=== PATIENT | female | born 1950 | race Caucasian/White ===

== ENCOUNTER 2020-03-03 11:53 | Outpatient (REF) | payer MEDICARE, SELFPAY ==
[2020-03-03 15:10] LABS: Albumin Level 4.5 g/dL (3.5-5.0); Anion Gap 15 (12-20); Blood Urea Nitrogen 14 mg/dL (9-16); Calcium 9.2 mg/dL (8.4-10.2); Carbon Dioxide 24 mmol/L (22-29); Chloride 103 mmol/L (96-108); Estimated Glomerular Filt Rate > 60; Magnesium 2.1 mg/dL (1.6-2.6); Phosphorus 3.8 mg/dL (2.7-4.5); Potassium 4.3 mmol/l (3.3-5.1); Sodium 138 mmol/L (135-145)
[2020-03-04 17:26] LABS: Calcium (PTHI) 9.7 mg/dL (8.6-10.4); PTHI 38 pg/mL (14-64)
== END 2020-03-03 11:54 | disposition home or self-care (01) ==
LOC: HO.10HDL 11:53
PROVIDERS: Visit Provider Internal Medicine Hypertension Specialist
DX: E83.52 Hypercalcemia (principal); E21.3 Hyperparathyroidism, unspecified; I10 Essential (primary) hypertension
CPT/HCPCS: 80051; 82040; 82310; 82565; 83735; 83970; 84100; 84520

== ENCOUNTER 2024-06-12 20:00 | Emergency (ER) | payer MEDICARE, SELFPAY ==
--- NOTE | ~2024-06-12 | XR_ITS ---
CLINICAL HISTORY: fall 3 view left ankle Comparison: None Findings: Acute comminuted Lisfranc joint fractures in the [id number]-[id number]. Acute and predominately oblique fracture through the distal fibula with medial intra-articular component and mild lateral displacement. 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 Ventral deformity of the distal tibia appears old with sclerosis. Soft tissue swelling and effusion present. No radiopaque retained foreign body. IMPRESSION: 1. Acute distal fibula fracture. 2. Please refer to foot x-rays for acute Lisfranc fractures. This document has been electronically signed by: Jesse Salazar MD on 06/12/2024 20:50:01
--- NOTE | ~2024-06-12 | XR_ITS ---
CLINICAL HISTORY: fall 3 view left foot Comparison: None Findings: Acute comminuted fractures in the bases of the 1st, 2nd, 3rd, and 4th metatarsals with predominantly lateral displacement of proximal and lateral fragments. No complete dislocation. Severe soft tissue swelling is present, including distally and dorsally. Low bone mineralization suggested. No radiopaque retained foreign body. IMPRESSION: Acute Lisfranc fracture. This document has been electronically signed by: Jesse Salazar MD on 06/12/2024 20:45:41
[2024-06-12 20:09] VITALS: BP 120/50; BP 148/88; PULSE 78; PULSE 80; RESP 16; TEMP 36.6; O2SAT 97; O2SAT 98; BMI 23.2
[2024-06-12 20:13] VITALS: BP 120/50; PULSE 78; RESP 16; TEMP 36.6; O2SAT 97
--- OUTSIDE RECORDS SUMMARY | 2024-06-12 20:43 | XMS_ITS | Encounter Summary ---
Author Organization [facility] Address [address] [facility] [address] [place] [address] Phone Care Team Providers Care Directional Driller Name Role Phone Unavailable Primary Care Provider Unavailabl e Encounter Details Date Type Department Care Team (Late Contact Info) Description 02/20/2021 Orders Only [facility] [address] [facility] [address] [place] [address] Angélica Ferrer MA Hypo-osmolality and hyponatremia (Primary Dx) Social History Tobacco Use Types Packs/Day Years Used Date Smoking Tobacco: Former Alcohol Use Standard Drinks/Week Comments Yes 0 (1 standard drink = 0.6 oz pure alcohol) Alcoholic Drinks/day: Occasional social drink Comments Unknown Sex and Gender Information Value Date Recorded Sex Assigned at Not on file Legal Sex Female 5:02 PM EST Gender Identity Not on file Sexual Orientation Not on file documented as of this encounter Plan of Treatment Upcoming Encounters Date Type Department Care Team (Late st Contact Info) Description 05/03/2025 1:30 PM EST Office [facility] [address] [place] [phone] Zain Conroy MD [address] [facility] [address] [place] [phone] Scheduled Orders Name Type Priority Associated Diagnoses Orde r Schedule Basic metabolic panel Lab Routine Hypo-osmolality and hyponatremia Expected: 02/20/2021, Expires: 03/23/2022 documented as of this encounter Visit Diagnoses Diagnosis Hypo-osmolality and hyponatremia- Primary documented in this encounter
--- OUTSIDE RECORDS SUMMARY | 2024-06-12 20:43 | XMS_ITS | Clinical Summary ---
Author Organization [employer] Address [address] [facility] 7t [place] [address] Care Team Providers Care Large Animal Veterinarian Name Role Phone Unavailable Primary Care Provider Unavailabl e Allergies Active Allergy Reactions Criticality Noted Date Comments Penicillins Diarrhea 04/17/2023 Medications atenolol (Tenormin) 25 MG tablet Take by mouth in the morning. Active Social History Tobacco Use Types Packs/Day Years Used Date Smoking Tobacco: Never Assessed Comments Unknown Sex and Gender Information Value Date Recorded Sex Assigned at Female 03/05/2022 10:17 AM EDT Legal Sex Female 10:17 AM EDT Gender Identity Female 03/05/2022 10:17 AM EDT Sexual Orientation Choose not to disclose 2021 10:17 AM EDT Last Filed Vital Signs Vital Sign Reading Time Taken Comments Blood Pressure 145/65 04/17/2023 2:22 PM EST Pulse - - Temperature - - Respiratory Rate - - Oxygen Saturation - - Inhaled Oxygen Concentration - - Weight - - Height - - Body Mass Index - - Plan of Treatment Health Maintenance Due Date Last Done Comments Depression Screening 1950 Lipid Panel 1950 SDOH Screening 1950 Alcohol/Substance Use Screening 1960 Tobacco Screening 1960 Hepatitis C Screening 02/23/1966 DTaP/Tdap/Td Vaccines (1 - Tdap) 02/23/1967 Pneumococcal Vaccine: 50+ Years (1 of 1 - PCV) 02/23/1998 Zoster Vaccines (1 of 2) 02/23/1998 Dental Oral Exam 03/15/2017 09/11/2016, 07/13/2013 Dental Prophylaxis 04/20/2017 10/18/2016, 0 09/29/2013, 02/15/2012, Additional history exists Dental X-Ray: Bitewings 09/12/2017 09/12/19 17, 07/20/2016, 12/10/2014, Additional history exists RSV Patients and Patients Aged 60 years or older (1 - 1-dose 75+ series) 02/23/2023 Dental X-Ray: Full Mouth 04/07/2023 020, 09/11/2016, 12/22/2013 COVID-19 Vaccine ( season) 2024 03/21/2022, 08/18/2020, 07/27/2020 Influenza Vaccine (#1) 2024 HIB Vaccines Aged Out No longer eligi ble based on patient's age to complete this topic HPV Vaccines Aged Out No longer eligi ble based on patient's age to complete this topic Hepatitis A Vaccines Aged Out No long er eligible based on patient's age to complete this topic Hepatitis B Vaccines Aged Out No long er eligible based on patient's age to complete this topic IPV Vaccines Aged Out No longer eligi ble based on patient's age to complete this topic Meningococcal Vaccine Aged Out No ana leo eligible based on patient's age to complete this topic RSV under 20 months Aged Out No longe r eligible based on patient's age to complete this topic Rotavirus Vaccines Aged Out No longer eligible based on patient's age to complete this topic Procedures Procedure Name Priority Date/Time Associated Diagnosis Comments PANORAMIC RADIOGRAPHIC IMAGE Routine 04/06/2020 12:00 AM EST PROPHYLAXIS - ADULT Routine 10/18/2016 1 2:00 AM EDT DIAGNOSTIC - DIAGNOSTIC IMAGING - INTRAORAL - COMPREHENSIVE SERIES OF RADIOGRAPHIC IMAGES Routine 09/11/2016 12:00 AM EDT COMPREHENSIVE ORAL EVALUATION - NEW OR ESTABLISHED PATIENT Routine 09/11/2016 12:00 AM EDT from Last 3 Months or Most Recently Relevant to Health Maintenance Insurance DENTAL - HSN FULL (MEDICAID)
--- OUTSIDE RECORDS SUMMARY | 2024-06-12 20:43 | XMS_ITS | Clinical Summary ---
Author Organization [facility] Address [address] [phone] Phone Care Team Providers Care Ways Operator Name Role Phone Unavailable Primary Care Provider Unavailabl e Allergies No known active allergies Medications loperamide (IMODIUM A-D) 2 MG tablet Take 1 tablet by mouth in the morning. 02/07/20 18 Active atenolol (TENORMIN) 25 MG tabletIndications:Essen tial hypertension,Primary hyperparathyroidism (HCC),Hypercalcemia Take 1 tablet (25 mg total) by mouth 1 (one) time each day 90 tablet 3 08/28/19 24 025 Active amLODIPine (NORVASC) 2.5 MG tabletIndications:Essen tial hypertension,Hypercalce vicky,Primary hyperparathyroidism (HCC) TAKE 1 TABLET(2.5 MG) BY MOUTH 1 TIME EACH DAY 30 tablet 2 04/30/20 24 Active amLODIPine (Norvasc) 2.5 MG tablet Take 1 tablet (2.5 mg total) by mouth 1 (one) time each day 90 tablet 3 04/30/20 24 025 Active Active Problems Problem Noted Date Diagnosed Date Essential hypertension 02/20/2021 Hypercalcemia 02/20/2021 Hyperparathyroidism 02/20/2021 Hypertensive renal disease 02/20/2021 Encounters Date Type Department Care Team Description 04/30/2024 1:00 PM EST [facility] [address] [place] [phone] Zain Conroy MD Essential hypertension (Primary Dx) 04/30/2024 Refill [facility] [address] [place] [phone] Zain Conroy MD Essential hypertension; Hypercalcemia; Primary hyperparathyroidism (HCC) from Last 3 Months Family History Medical History Relation Comments Dementia Mother Hypertension Mother Relation Status Comments Father Unknown Mother Unknown Social History Tobacco Use Types Packs/Day Years Used Date Smoking Tobacco: Former Smokeless Tobacco: Never Tobacco Cessation:Counseling Given: Not Answered Alcohol Use Standard Drinks/Week Comments Yes 0 (1 standard drink = 0.6 oz pure alcohol) Alcoholic Drinks/day: Occasional social drink Comments Unknown Sex and Gender Information Value Date Recorded Sex Assigned at Not on file Legal Sex Female 5:02 PM EST Gender Identity Not on file Sexual Orientation Not on file Last Filed Vital Signs Vital Sign Reading Time Taken Comments Blood Pressure 130/78 04/30/2024 12:59 PM EST Pulse 86 03/05/2023 1:27 PM EDT Temperature - - Respiratory Rate - - Oxygen Saturation 96% 03/05/2023 1:27 PM EDT Inhaled Oxygen Concentration - - Weight 59.8 kg (131 lb 12.8 oz) 024 12:59 PM EST Height 165.1 cm (5' 5 ) 03/01/2022 10:2 2 AM EDT Body Mass Index 21.93 03/01/2022 10:22 AM EDT Plan of Treatment Upcoming Encounters Date Type Department Care Team (Late st Contact Info) Description 05/03/2025 1:30 PM EST Office [facility] [address] [place] [address] Zain Conroy MD [address] [facility] [address] [place] [address] Health Maintenance Due Date Last Done Comments Pneumococcal Vaccine: 65+ Ye ars (1 of 2 - PCV) 02/23/1956 Influenza Vaccine (#1) 2024 Hepatitis B Vaccine Aged Out No longe r eligible based on patient's age to complete this topic Insurance [facility] [employer] [id number]
[2024-06-12] MEDS: Acetaminophen 325 MG TABLET 975 MG PO (21:03)
[2024-06-12 22:09] VITALS: BP 117/47; PULSE 77; RESP 20; TEMP 36.5; O2SAT 94
[2024-06-13] VITALS (7 sets, daily range): BP systolic 135–159; BP diastolic 59–72; PULSE 78–96; RESP 16–20; TEMP 36.5–37; O2SAT 94–98
--- NOTE | 2024-06-13 03:15 | ED_ITS ---
HPI - Extremity Injury (Lower) General Chief Complaint: Extremity Injury, Lower Stated Complaint: A&O Lft foot pain after fall deformity on foot Time Seen by Provider: 06/13/24 03:15 Source: patient Mode of arrival: EMS Limitations: no limitations History of Present Illness ED Provider: HPI Narrative: Patient apparently wearing the high heels coming out of the car slipped on the b lack eyes comes here with swelling and bruising of the left foot unable to bear weight because of pain no other injuries no head injury no loss of consciousness Related Data Previous Rx's ?Medication ?Instructions ?Recorded oxycodone 5 mg tablet 5 mg PO Q6H PRN pain #20 tabs 06/13/24 walker (Ultra-Light Rollator misc) #1 ea 06/13/24 Allergies Allergy/AdvReac Type Severity Reaction Status Date / Time No Known Allergies Allergy Verified 06/12/24 20:12 Review of Systems Review of Systems: Yes all other systems are reviewed and are negative [facility] Social History Social History Alcohol intake: current Alcohol intake frequency: a few times a month Alcohol type: wine Smoked in Last 30 Days: No Use of substances other than those prescribed or required for medical reasons: No Advance Directives: No Advance Directives Information Provided: No Physical Exam Vital Signs: Vital Signs: Last Vital Signs Temp 97.7 F 06/13/24 06:21 Pulse 87 06/13/24 06:21 Resp 16 06/13/24 06:21 BP 155/71 H 06/13/24 06:21 Pulse Ox 95 06/13/24 06:21 O2 Del Method Room Air 06/13/24 06:21 BMI result Body Mass Index 23.2 Appearance: Alert. Oriented X3. No acute distress. ENT: Pharynx normal. Oral Mucosa moist Neck: Normal inspection. Neck supple. CVS: Normal heart rate and rhythm. Pulses normal. Respiratory: No respiratory distress. Equal air entry bilateral, no wheezing/rales/rhonchi Skin: Skin warm and dry. Normal skin color. Normal skin turgor. Extremities: No lower extremity edema. Left foot with ecchymosis in the dorsum with diffuse tenderness tenderness at the lateral malleolus Neuro: Oriented X 3. Medications Administered Discontinued Medications Generic Name Dose Route Start Last Admin Trade Name Freq PRN Reason Stop Dose Admin Acetaminophen 975 mg 06/12/24 20:57 06/12/24 21:03 Acetaminophen 325 Mg Tablet PO 06/12/24 20:58 975 mg ONCE ONE Administration Oxycodone HCl 10 mg 06/13/24 03:24 06/13/24 03:30 Oxycodone Hcl Immed Release 5 Mg Tablet PO 06/13/24 03:25 10 mg ONCE ONE Administration Oxycodone HCl 10 mg 06/13/24 06:13 06/13/24 06:22 Oxycodone Hcl Immed Release 5 Mg Tablet PO 06/13/24 06:14 10 mg ONCE ONE Administration Medical Decision Making Medical Decision Making MDM Narrative: Patient with left foot 2nd 3rd 4th and 5th metatarsal fracture with non displaced left lower and fibular fracture from mechanical fall ortho boot was applied patient was able to ambulate with walker does not want to stay in the hospital will be able to manage at home advised to follow with Orthopedics Independent Interpretation I performed an independent interpretation of an: Plain X-Ray Radiology Impression Discussion of test interpretation with radiology: I have reviewed the radiologist's reading. Radiologist Impression: [address] [address] XRay Report Signed Patient: Sophia Vicente MR#: [id number] : 1950 Acct:[id number] Age/Sex: 74 / F ADM Date: 06/12/24 Loc: .ED Attending Dr: Ordering Physician: Generic ED Physician Date of Service: 06/12/24 Procedure(s): XR ankle LT 2V Accession Number(s): [id number] cc: Generic ED Physician; Physician,Unknown ~ CLINICAL HISTORY: fall 3 view left ankle Comparison: None Findings: Acute comminuted Lisfranc joint fractures in the tqgbv-qm-oyez. Acute and predominately oblique fracture through the distal fibula with medial intra-articular component and mild lateral displacement. 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 Ventral deformity of the distal tibia appears old with sclerosis. Soft tissue swelling and effusion present. No radiopaque retained foreign body. IMPRESSION: 1. Acute distal fibula fracture. 2. Please refer to foot x-rays for acute Lisfranc fractures. This document has been electronically signed by: Jesse Salazar MD on 06/12/2024 20:50:[address] [address] XRay Report Signed Patient: Sophia Vicente MR#: [id number] : 1950 Acct:[id number] Age/Sex: 74 / F ADM Date: 06/12/24 Loc: HO.ED Attending Dr: Ordering Physician: Generic ED Physician Date of Service: 06/12/24 Procedure(s): XR foot LT 2V Accession Number(s): [id number] cc: Generic ED Physician; Physician,Unknown ~ CLINICAL HISTORY: fall 3 view left foot Comparison: None Findings: Acute comminuted fractures in the bases of the 1st, 2nd, 3rd, and 4th metatarsals with predominantly lateral displacement of proximal and lateral fragments. No complete dislocation. Severe soft tissue swelling is present, including distally and dorsally. Low bone mineralization suggested. No radiopaque retained foreign body. IMPRESSION: Acute Lisfranc fracture. This document has been electronically signed by: Jesse Salazar MD on 06/12/2024 20:45:41 Dictated By: Jesse Salazar MD Signed By: <Electronically signed by Jesse Salazar MD in OV> 06/12/242045 DD/ 44 TD/TT: 06/12/242044 Campus Executive Director: Procedures Orthopedic Splinting/Casting Injury #1: Side: left Lower Extremity Injury Location: ankle and foot Lower Extremity Immobilizer: post-op shoe Discharge Plan Discharge Clinical Impression: Closed left fibular fracture, Metatarsal stress fracture of left foot Patient Disposition: Home, Self-Care Instructions: Leg Fracture (ED), Foot Fracture in Adults (ED) Additional Instructions: Wear the ortho boot as given to you and use walker for ambulation Follow with Orthopedics Keep your left leg elevated Pain medication as prescribed Partial weight-bearing as tolerated Prescriptions: New oxycodone 5 mg tablet 5 mg PO Q6H PRN (Reason: pain) Qty: 20 0RF Rx Instructions: Partial Fill upon patient request. (DME) Ultra-Light Rollator Misc See Rx Instructions .Route Qty: 1 0RF Rx Instructions: As directed Referrals: Nestor Watts MD [Physician] - 1 week Print Language: Estonian
[2024-06-13] MEDS: oxyCODONE HCl Immed Release 5 MG TABLET 10 MG PO ×2 (03:30→06:22)
--- NOTE | 2024-06-13 04:09 | PC.NURSE ---
Placed boot on left foot, patient tolerated will stated foot felt better with boot, reporting some dizziness stated she hasn't eaten since noon yesterday and [place]. Pt reported she lives at home alone and daughter is unable to come until 9am.
== END 2024-06-13 10:48 | disposition home or self-care (01) ==
PROVIDERS: Emergency Provider Internal Medicine
DX: S82.402A Unspecified fracture of shaft of left fibula, initial encounter for closed fracture (principal); S92.352A Displaced fracture of fifth metatarsal bone, left foot, initial encounter for closed fracture; S92.332A Displaced fracture of third metatarsal bone, left foot, initial encounter for closed fracture; S92.342A Displaced fracture of fourth metatarsal bone, left foot, initial encounter for closed fracture; W00.0XXA Fall on same level due to ice and snow, initial encounter; Y93.9 Activity, unspecified; Y92.9 Unspecified place or not applicable; Y99.8 Other external cause status
CPT/HCPCS: 29515; 73600; 73620; 99284; 99285

== ENCOUNTER → 2024-06-12 20:20 | Outpatient (BNV) | payer MEDICARE, OTHER, SELFPAY | PROVIDERS: Visit Provider Radiology Neuroradiology | DX: S82.451A Displaced comminuted fracture of shaft of right fibula, initial encounter for closed fracture (principal); S92.311A Displaced fracture of first metatarsal bone, right foot, initial encounter for closed fracture; S92.326A Nondisplaced fracture of second metatarsal bone, unspecified foot, initial encounter for closed fracture; S92.33 Fracture of third metatarsal bone; S92.34 Fracture of fourth metatarsal bone | CPT/HCPCS: 73600; 73620 ==

== ENCOUNTER 2024-12-24 19:08 | Emergency (ER) | payer MEDICARE, SELFPAY ==
--- OUTSIDE RECORDS SUMMARY | 2024-09-03 09:15 | XMS_ITS ---
Author Organization [facility] [place] Address [address] [place] [address] Care Team Providers Care Scale Installer Name Role Phone Dat Camargo Unavailable [phone] REASON FOR VISIT New Patient Exam Encounters Encounter Location Date Provider Diagnosis Formerly [facility], [address] [place] [phone] 09/03/2024 Dat Camargo Plan Of Treatment No Information Progress Notes * TIM SÁNCHEZOB:1949 (74 yo F)Acc No.[id number]:09/03/2024 Progress Notes Patient: SIMON DÍAZ Provider: Delia KEBEDE :1950 A ge:74 Y S ex:Female Date:09/03/2024 Address:[address] [id number] Subjective: * Chief Complaints: * N ew Patient Exam * Ocular Surgical History: Objective: Vision Examination: * Electronic signature of Rush Camargo PA-C on 12/24/2024 at 07:43 PM EDT Sign off status: Pending * Provider: Delia KEBEDE Date: 09/03/2024 Generated for Kenney sanchez/Rogers/Armandoitting on: 12/24/2024 07:43 PM EDT
[2024-12-24] VITALS (8 sets, daily range): BP systolic 0–194; BP diastolic 0–113; PULSE 0–75; RESP 16–20; TEMP -17.7–36.8; O2SAT 0–98; BMI 24.0
--- NOTE | ~2024-12-24 | XR_ITS ---
CLINICAL HISTORY: pain and swelling distally 5 view right wrist Comparison: None provided Findings: Impacted comminuted intra-articular fracture of the distal radius. Posterior displacement of the distal fragment. Displaced fracture of the ulnar styloid process. First carpometacarpal joint osteoarthritis. No radiopaque foreign body. IMPRESSION: 1. Impacted comminuted intra-articular distal radius fracture with posterior displacement 2. Displaced ulnar styloid process fracture This document has been electronically signed by: Tello Osuna MD on 12/24/2024 20:41:08
--- NOTE | ~2024-12-24 | XR_ITS ---
CLINICAL HISTORY: fall onto outstretched hand, wrist pain swelling 3 view right hand Comparison: None provided Findings: There is a comminuted impacted distal radial fracture. No dislocations. No significant arthritic change. No erosions. No radiopaque foreign body. IMPRESSION: 1. Comminuted impacted distal radial fracture This document has been electronically signed by: Shaggy Burrell MD on 12/24/2024 20:57:28
--- NOTE | ~2024-12-24 | XR_ITS ---
CLINICAL HISTORY: s p reduction 2 view right wrist Comparison: None provided Findings: There is a comminuted intra-articular distal radial fracture with dorsal angulation of the distal fragments. There is distracted ulnar styloid process fracture. No dislocations. No significant arthritic change or erosions. No radiopaque foreign body. IMPRESSION: 1. Comminuted intra-articular angulated distal radial fracture. 2. Ulnar styloid process fracture This document has been electronically signed by: Shaggy Burrell MD on 12/24/2024 22:12:02
--- NOTE | 2024-12-24 19:12 | ED.GENADULT ---
HPI - General Adult General Chief complaint: Extremity Injury, Upper Stated complaint: fell 12/24 right wrist pain/swelling Time Seen by Provider: 12/24/24 20:15 Source: patient Limitations: other (Intoxication) History of Present Illness ED Provider: Micaela Pascual PA-C HPI narrative: 74-year-old female with a history of hypertension presents after fall. Patient states she tripped while walking up a step, she fell forward landing on outstretched hand, now with right wrist pain. Associated swelling and deformity. Denies paresthesia or hand pain. The patient does not use a blood thinner. There was no head strike no loss of consciousness. Related Data Previous Rx's ?Medication ?Instructions ?Recorded oxycodone 5 mg tablet 5 mg PO Q6H PRN pain #20 tabs 06/13/24 walker (Ultra-Light Rollator misc) #1 ea 06/13/24 Allergies Allergy/AdvReac Type Severity Reaction Status Date / Time No Known Allergies Allergy Verified 12/24/24 19:16 Review of Systems Review of Systems: Yes all other systems are reviewed and are negative Constitutional: Constitutional: Denies fatigue and Denies fever(s) Cardiovascular: Cardiovascular: Denies chest pain and Denies dyspnea Respiratory: Respiratory: Denies dyspnea Musculoskeletal: Musculoskeletal: Reports arthralgias, Reports joint swelling, Denies muscle weakness, Denies numbness and Denies tingling Neurologic: Denies numbness and Denies tingling Endocrine: Endocrine: Denies fatigue [facility] Past Medical History Attestation statement: The following information was validated with the patient. Social History Social History (System 07/01/24 @ 10:37 by Josiane Crews) Alcohol intake: current Alcohol intake frequency: 0-2 drinks per day Alcohol type: wine and hard liquor Smoked in Last 30 Days: No Use of substances other than those prescribed or required for medical reasons: No Advance Directives: No Advance Directives Information Provided: No Physical Exam ED Vital Signs: Vital Signs - 24 hr 12/24/24 19:13 12/24/24 19:37 12/24/24 22:05 Temperature 97.5 F 97.5 F Pulse Rate 75 75 66 Respiratory Rate 20 20 16 Blood Pressure 194/85 H 194/85 H 151/72 H Pulse Oximetry 98 98 98 Oxygen Delivery Method Room Air Room Air BMI result Body Mass Index 24.0 Const Other: Alert well-appearing, no evidence of head trauma on exam Orientation/consciousness: patient oriented x3 HENMT Other: Alcohol halitosis Resp Effort & Inspection: normal respiratory effort Cardio Other: Normal peripheral perfusion Skin Other: Warm dry no rash Neuro General: patient oriented x3, gait normal, no focal motor deficits and CN's II-XI intact bilaterally Extrem Other: The right wrist is deformed, swollen, ecchymotic, the patient is continually shaking her hand back and forth, flexing and extending the wrist Psych Other: Cooperative, intoxicated Course Course Course Narrative: This is a rapid medical exam performed by Sunny Pa NP: Additional HPI, ROS, PE not included below will be deferred to primary provider. Patient is a 74y/o R hand dominant female presenting with complaint of right wrist pain and swelling after a fall a few hours ago. States that she missed a step and fell onto her outstretched hand. Denies head strike or LOC. Not anticoagulated. Admits to drinking 2 glasses of wine today. Plan: xrays Consultations Consultation #1: per ortho....Richard Dhillon PA-C Time: 20:52 Medications Administered Discontinued Medications Generic Name Dose Route Start Last Admin Trade Name Jose PRN Reason Stop Dose Admin Acetaminophen 975 mg 12/24/24 20:47 12/24/24 21:20 Acetaminophen 325 Mg Tablet PO 12/24/24 20:48 Not Given ONCE ONE Acetaminophen 1,000 mg in 100 mls @ 400 mls/hr 12/24/24 22:09 12/24/24 22:43 Ofirmev IV 12/24/24 22:23 400 mls/hr ONCE ONE Administration Ibuprofen 600 mg 12/24/24 20:47 12/24/24 21:20 Ibuprofen 600 Mg Tablet PO 12/24/24 20:48 Not Given ONCE ONE Propofol 31.7515 mg 12/24/24 21:06 12/24/24 22:05 Propofol 200 Mg/20 Ml Vial 0.5 mg/kg (31.7515 mg) 12/24/24 21:07 31.7515 mg IVPUSH Administration ONCE ONE Propofol 63.503 mg 12/24/24 21:51 12/24/24 22:05 Propofol 200 Mg/20 Ml Vial 1 mg/kg (63.503 mg) 12/24/24 21:52 63.503 mg IVPUSH Administration ONCE ONE Procedures Orthopedic Fracture Reduction Fracture #1: Time Out Performed: Yes Side: right Fracture Reduction Location: radius Analgesia: procedural sedation Technique: direct manipulation and traction/counter-traction Post Reduction X-rays Demonstrate: acceptable reduction Post-reduction neuro exam: intact and no change Post-reduction vascular exam: intact and no change Splint Applied: Yes Patient Tolerated Procedure: well and no complications Procedural Sedation Indication: fracture/dislocation reduction ASA Class: II Mallampati Class: I Time of Last PO Intake: 11:30 Preparation: fundraising director applied, pulse oximeter, capnometry used, supplemental O2 applied, reversal agents at bedside, suction/airway equipment at bedside and IV secured IV Propofol dose (mg): 95 Patient Tolerated Procedure: well and no complications Medical Decision Making Medical Decision Making MDM Narrative: 74-year-old female with a history of hypertension presents after fall. Patient states she tripped while walking up a step, she fell forward landing on outstretched hand, now with right wrist pain. Associated swelling and deformity. Denies paresthesia or hand pain. The patient does not use a blood thinner. There was no head strike no loss of consciousness. Problem: Intoxication, age History: Per patient I have considered the following differential diagnoses: Fracture, dislocation, sprain, contusion Plan: X-rays of the hand and wrist ordered from triage, the patient has a distal radial fracture with the ulnar styloid process fracture. We will be reaching out to ortho. We are preparing for procedural sedation, for splinting purposes, we will use propofol and maybe ketamine. We will obtain screening labs in the event the patient requires admission today. Giving IV Tylenol for her pain given concurrent intoxication. Ordering a sling as well. I have independently reviewed the following tests: Labs: Slight leukocytosis, not anemic, no electrolyte abnormality, serum ethanol 200 X-ray right hand: indings: There is a comminuted impacted distal radial fracture. No dislocations. No significant arthritic change. No erosions. No radiopaque foreign body. IMPRESSION: 1. Comminuted impacted distal radial fracture X-ray right wrist:Findings: Impacted comminuted intra-articular fracture of the distal radius. Posterior displacement of the distal fragment. Displaced fracture of the ulnar styloid process. First carpometacarpal joint osteoarthritis. No radiopaque foreign body. IMPRESSION: 1. Impacted comminuted intra-articular distal radius fracture with posterior displacement 2. Displaced ulnar styloid process fracture Postreduction film: Findings: There is a comminuted intra-articular distal radial fracture with dorsal angulation of the distal fragments. There is distracted ulnar styloid process fracture. No dislocations. No significant arthritic change or erosions. No radiopaque foreign body. IMPRESSION: 1. Comminuted intra-articular angulated distal radial fracture. 2. Ulnar styloid process fracture Lab Data 12/24/24 20:31 12/24/24 20:31 Labs: Lab Results 12/24/24 12/24/24 Range/Units 20:30 20:31 WBC 13.3 H (4.8-10.8) X10*3/uL RBC 4.52 (4.20-5.50) X10*6/uL Hgb 14.0 (12.0-16.0) g/dl Hct 41.1 (37.0-47.0) % MCV 90.9 (80.0-98.0) fL MCH 31.0 (27.0-33.0) pg MCHC 34.1 (31.0-35.0) g/dl RDW 13.5 (11.0-16.0) % Plt Count 276 (160-400) X10*3/uL MPV 10.0 (9.4-12.3) fL Immature Gran % (Auto) 0.5 H (0.0-0.4) % Neut % (Auto) 89.0 H (45-73) % Lymph % (Auto) 7.4 L (20-40) % Fajardo % (Auto) 2.6 (2-11) % Eos % (Auto) 0.2 (0-4) % Baso % (Auto) 0.3 (0-2) % Lymph # (Auto) 1.0 L (1.2-4.9) X10*3/uL Fajardo # (Auto) 0.4 (0.1-1.2) X10*3/uL Eos # (Auto) 0.0 (0.0-0.4) X10*3/uL Baso # (Auto) 0.0 (0.0-0.2) X10*3/uL Abs Immat Gran (auto) 0.07 H (0.00-0.03) X10*3/uL Absolute Neuts (auto) 11.8 H (2.0-8.3) x10*3/uL Absolute Nucleated RBC 0.000 (0.0-0.012) X10*3/uL Nucleated RBC % (auto) 0.0 (0.0-0.2) /100WBC Sodium 135 (135-145) mmol/L Potassium 3.7 (3.3-5.1) mmol/L Chloride 101 (96-108) mmol/L Carbon Dioxide 20 L (22-29) mmol/L Anion Gap 18 (12-20) BUN 16 (9-16) mg/dL Creatinine 0.66 (0.5-1.4) mg/dL Estim Creat Clear Calc 62.6 Estimated GFR > 60 Random Glucose 118 H (60-115) mg/dL Calcium 9.0 (8.4-10.2) mg/dL Magnesium 2.1 (1.6-2.6) mg/dL Total Bilirubin 0.8 (0.0-1.0) mg/dL AST 30 (5-31) U/L ALT 17 (0-31) U/L Alkaline Phosphatase 81 (39-117) U/L Total Protein 7.9 (6.5-8.0) g/dL Albumin 4.8 (3.5-5.0) g/dL Urine Opiates Screen Not Detected (Not Detect) Ur Buprenorphine Scrn Not Detected (Not Detect) ng/mL Ur Oxycodone Screen Not Detected (Not Detect) ng/mL Urine Methadone Screen Not Detected (Not Detect) ng/mL Urine Fentanyl Screen Not Detected (Not Detect) Ur Barbiturates Screen Not Detected (Not Detect) Ur Phencyclidine Scrn Not Detected (Not Detect) Ur Amphetamines Screen Not Detected (Not Detect) U Benzodiazepines Scrn Not Detected (Not Detect) Urine Cocaine Screen Not Detected (Not Detect) U Marijuana (THC) Screen Not Detected (Not Detect) Ethyl Alcohol 200 mg/dL Discharge Plan Discharge Clinical Impression: Distal radius fracture, right, Nondisplaced fracture of right ulna styloid process, initial encounter for closed fracture Patient Disposition: Home, Self-Care Additional Instructions: You sustained a wrist fracture. See home care instructions. You need to keep the splint in place until you follow up with the orthopedic service. I am providing you with their contact, call tomorrow to make an appointment. You can use [id number] Tylenol 1000 mg taken every 8 hours for your pain. Prescriptions: No Action oxycodone 5 mg tablet 5 mg PO Q6H PRN (Reason: pain) Qty: 20 0RF Rx Instructions: Partial Fill upon patient request. (DME) Ultra-Light Rollator Misc See Rx Instructions .Route Qty: 1 0RF Rx Instructions: As directed Referrals: Nestor Watts MD [Physician, Orthopedics] Referral Note: Right distal radial fracture and ulnar styloid process fracture Print Language: Kiswahili
--- OUTSIDE RECORDS SUMMARY | 2024-12-24 19:44 | XMS_ITS | Encounter Summary ---
Author Organization [facility] Address [address] [facility] [place] [address] Phone Care Team Providers Care Chemical Equipment Repairer Name Role Phone Unavailable Primary Care Provider Unavailabl e Encounter Details Date Type Department Care Team (Late Contact Info) Description 02/20/2021 Orders Only [facility] [address] [place] [address] Angélica Ferrer MA Hypo-osmolality and [...] Visit [facility] [address] [place] [phone] Zain Conroy MD [address] [facility] [address] [place] [phone] Scheduled Orders Name Type Priority Associated Diagnoses Orde r Schedule Basic metabolic panel Lab Routine Hypo-osmolality and hyponatremia Expected: 02/20/2021, Expires: 03/23/2022 documented as of this encounter Visit Diagnoses Diagnosis Hypo-osmolality and hyponatremia- Primary documented in this encounter
--- OUTSIDE RECORDS SUMMARY | 2024-12-24 19:44 | XMS_ITS | Patient Health Record ---
Author Organization [facility] Address [address] [place] [address] Care Team Providers Care Vat Washer Name Role Phone Radha Escobar Unavailable [phone] Reason For Referral No Information Encounters Encounter Location Date Provider Diagnosis [facility] [address] [place] [address] 08/07/2024 Radha Escobar [address] [address] 10/16/2024 Radha Escobar Plan Of Treatment No Information Insurance Providers Payer Name Payer Address Payer Phone Subscriber Number Group Number Insured Name Patient Relationship to Insured Coverage Start Date Coverage End Date Medicare National Govt Svcs Inc [address] [facility] [address] [phone] Magaly Vicente Self - patient is the insured [facility] Medicare Preferred [address] [place] [address] Magaly Vicente Self - patient is the insured
--- OUTSIDE RECORDS SUMMARY | 2024-12-24 19:44 | XMS_ITS | Encounter Summary ---
Author Organization [employer] Address [address] [facility] 7t [place] [address] Care Team Providers Care Sample Cutter Name Role Phone Unavailable Primary Care Provider Unavailabl e Encounter Details Date Type Department Care Team (Late st Contact Info) Description 04/18/2023 Abstract [facility] [address] [place] [address] Adeline Pulliam BDS Social History Tobacco Use Types Packs/Day Years Used Date Smoking Tobacco: Never Assessed Comments Unknown Sex and Gender Information Value Date Recorded Sex Assigned at Female 03/05/2022 10:17 AM EDT Legal Sex Female 10:17 AM EDT Gender Identity Female 03/05/2022 10:17 AM EDT Sexual Orientation Choose not to disclose 2021 10:17 AM EDT documented as of this encounter Plan of Treatment Not on file documented as of this encounter Visit Diagnoses Not on filedocumented in this encounter
[2024-12-24 20:42] LABS: Hematocrit 41.1 % (37.0-47.0); Hemoglobin 14.0 g/dl (12.0-16.0); Imm Gran Abs Auto 0.07 X10*3/uL (0.00-0.03); Imm Gran Pct Auto 0.5 % (0.0-0.4); Lymphocytes Absolute Auto 1.0 X10*3/uL (1.2-4.9); MANUAL DIFF FLAG NO; Mean Corpuscular HGB Conc 34.1 g/dl (31.0-35.0); Mean Corpuscular Hemoglobin 31.0 pg (27.0-33.0); Mean Corpuscular Volume 90.9 fL (80.0-98.0); NRBC Abs Auto 0.000 X10*3/uL (0.0-0.012); NRBC Pct Auto 0.0 /100WBC (0.0-0.2); Platelet Count 276 X10*3/uL (160-400); Red Blood Count 4.52 X10*6/uL (4.20-5.50); White Blood Count 13.3 X10*3/uL (4.8-10.8)
[2024-12-24 20:52] LABS: Cannabinoid Screen Urine Not Detected (Not Detect)
[2024-12-24 20:55] LABS: Alanine Aminotransferase 17 U/L (0-31); Albumin Level 4.8 g/dL (3.5-5.0); Alkaline Phosphatase 81 U/L (39-117); Anion Gap 18 (12-20); Aspartate Amino Transferase 30 U/L (5-31); Blood Urea Nitrogen 16 mg/dL (9-16); Calcium 9.0 mg/dL (8.4-10.2); Carbon Dioxide 20 mmol/L (22-29); Chloride 101 mmol/L (96-108); Creatinine Clr Calc Pharmacy 62.6; Estimated Glomerular Filt Rate > 60; Magnesium 2.1 mg/dL (1.6-2.6); Potassium 3.7 mmol/L (3.3-5.1); Sodium 135 mmol/L (135-145); Total Protein 7.9 g/dL (6.5-8.0)
--- NOTE | 2024-12-24 23:17 | PC.NURSE ---
Pts ride at bedside, discharge instructions provided to/reviewed with pt and family member.
== END 2024-12-24 23:22 | disposition home or self-care (01) ==
PROVIDERS: Physician Assistant Medical; Emergency Provider Emergency Medicine
DX: S52.501A Unspecified fracture of the lower end of right radius, initial encounter for closed fracture (principal); S52.611A Displaced fracture of right ulna styloid process, initial encounter for closed fracture; M25.531 Pain in right wrist; X50.1XXA Overexertion from prolonged static or awkward postures, initial encounter; Y93.01 Activity, walking, marching and hiking; Y92.9 Unspecified place or not applicable; Y99.8 Other external cause status; Z51.81 Encounter for therapeutic drug level monitoring; Z79.899 Other long term (current) drug therapy
CPT/HCPCS: 25605; 36415; 73100; 73110; 73130; 80053; 80307; 83735; 85025; 96365; 96375; 99152; 99284; 99285; J0131; J2704

== ENCOUNTER → 2024-12-24 19:14 | Outpatient (BNV) | payer MEDICARE, SELFPAY | PROVIDERS: Emergency Provider Emergency Medicine; Visit Provider Specialist | DX: S52.571A Other intraarticular fracture of lower end of right radius, initial encounter for closed fracture (principal); S52.611A Displaced fracture of right ulna styloid process, initial encounter for closed fracture | CPT/HCPCS: 73100; 73110; 73130 ==

== ENCOUNTER 2024-12-27 10:49 | Emergency (ER) | payer MEDICARE, SELFPAY ==
--- NOTE | ~2024-12-27 | XR_ITS ---
CLINICAL HISTORY: Resplinted fracture Radiographs of the right wrist, 3 views, 4 images Comparison: CR - XR WRIST RT MIN 3V - 12/24/24 21:36 EDT CR - XR WRIST RT 2V - 12/24/24 19:26 EDT CR - XR HAND RT MIN 3V - 12/24/24 19:25 EDT Findings: Status post recasting of the fracture of the distal radial metaphysis. The appearance of the fracture is most similar to the study from 12/24/24 19:26 EDT. The fracture is comminuted with intra-articular extension. Impaction measures up to 1.0 cm. Dorsal displacement measures up to 1.0 cm. There is a fracture of the styloid process of the ulna with a 6 mm fracture fragment displaced by up to 8 mm , similar to the prior studies. No dislocation. Moderate degenerative change. Soft tissue swelling. Impression: Status post recasting. Comminuted fracture of the distal radial metaphysis with intra-articular extension. Displacement is similar to the radiographs prior to reduction on 12/24/24. Fracture of the styloid process of the ulna, unchanged. This document has been electronically signed by: Fide Waite MD on 12/27/2024 14:50:39
[2024-12-27 10:52] VITALS: BP 201/88; PULSE 86; RESP 18; TEMP 36.3; O2SAT 97; BMI 19.9
--- NOTE | 2024-12-27 12:21 | ED.EXTPRO ---
HPI - Extremity Problem General Chief complaint: Extremity Injury, Upper Stated complaint: blood on her cast Time Seen by Provider: 12/27/24 12:21 History of Present Illness ED Provider: Kareem FLOWER Narrative: The patient is a 74-year-old woman who was here in the emergency room 3 days ago with a right distal radius fracture which was reduced under procedural sedation and splinted with a sugar-tong splint. She was discharged to follow up with Orthopedics. Today she noticed that a lot of blood at soaked into the dressing associated with the sugar-tong splint and came to the emergency room because of this. There has been no associated fever. The patient has been taking acetaminophen for pain. The patient does not recall if there was any break to the skin at the time that she sustained the original injury. Related Data Previous Rx's ?Medication ?Instructions ?Recorded oxycodone 5 mg tablet 5 mg PO Q6H PRN pain #20 tabs 06/13/24 walker (Ultra-Light Rollator misc) #1 ea 06/13/24 Allergies Allergy/AdvReac Type Severity Reaction Status Date / Time No Known Allergies Allergy Verified 12/27/24 10:54 Review of Systems Review of Systems: Yes all other systems are reviewed and are negative [facility] Social History Social History (System 07/01/24 @ 10:37 by Josiane Crews) Alcohol intake: current Alcohol intake frequency: 0-2 drinks per day Alcohol type: wine and hard liquor Advance Directives: No Advance Directives Information Provided: No Do you have a plan to hurt others: No Plan Physical Exam Vital Signs: Vital Signs: Last Vital Signs Temp 97.5 F 12/27/24 14:24 Pulse 73 12/27/24 14:24 Resp 16 12/27/24 14:24 BP 179/66 H 12/27/24 14:24 Pulse Ox 98 12/27/24 14:24 O2 Del Method Room Air 12/27/24 14:24 BMI result Body Mass Index 19.9 Const: Other: The patient is a chronically ill-appearing 74-year-old. She is awake and alert. She is well-groomed. She has a sugar-tong splint on her right arm affixed with Wilber bandages and there is some clear soilage of the Wilber bandages with what looks like bloody drainage. HEENT: Other: The face is symmetrical. ?Mucous membranes moist. Eyes: Other: Pupils are round equal, conjunctivae are clear, extraocular movements intact Neck: Other: No C-spine tenderness, full range of motion of the neck, no JVD Resp: Effort & Inspection: normal respiratory effort Auscultation: clear to auscultation bilaterally Cardio: Rate: regular rate Rhythm: regular rhythm Heart sounds: S1 normal heart sound present and S2 normal heart sound present Skin: Other: After taking down the splint there was an underlying dressing over the skin of the distal forearm which seemed to be combined of Xeroform and some other dressing material. After everything was taken down it is a apparent that there are 2 small skin tears on the dorsum of the right wrist. There is also what looks like a linear blister longitudinally on the radial aspect of the forearm. Neuro: Other: The patient is awake and alert. She is oriented and appropriate. Cranial nerves are intact but she seems to have some kind of ruminative repetitive mouth movements. She seems to have intact strength and sensation in her extremities including normal sensation in the fingers of the right hand. Extrem: Other: The patient arrived with a sugar-tong splint in place which was showing signs of some blood-soaked to drainage. After removal of the splint there was a dressing more focally on the distal dorsal right forearm. After removing this dressing there are 2 small skin tears on the dorsum of the wrist and a linear blister was apparent on the radial side of the forearm. There is some generalized deformity to the wrist itself. Some bruising to the skin of the hand. The hand is neurovascularly intact. Medications Administered Discontinued Medications Generic Name Dose Route Start Last Admin Trade Name Wallyq PRN Reason Stop Dose Admin Acetaminophen 975 mg 12/27/24 13:32 12/27/24 14:05 Acetaminophen 325 Mg Tablet PO 12/27/24 13:33 975 mg ONCE ONE Administration Medical Decision Making Medical Decision Making MDM Narrative: The patient is a 74-year-old woman who was seen here 3 days ago because of a right wrist fracture with a deformity. The previous emergency room visit the patient was sedated for reduction of the deformity. The patient was placed in his sugar-tong splint. The patient presents today because she feels that blood has soaked through the splint and Wilber bandages. Given the appearance of the Wilber bandages I took down the Wilber bandages and the splint. There was a dressing under the cast padding covering 2 small skin tears on the dorsum of the wrist. There were no findings that make me think she had an open fracture. There was a linear blister to the skin on the radial side of the forearm as well. I did not feel there was any sign of infection to the skin. The images were reviewed with the on-call orthopedic provider who recommended applying Xeroform to the skin tears and wrist splinting the patient. I therefore cleaned the area of the skin tears and applied a Xeroform over the skin tears with a dressing over the Xeroform. I suspended the forearm by the index and ring fingers and applied some weight to the elbow in hopes of achieving some degree of elongation again. After keeping the forearms suspended with the weights for about 10 minutes I then applied a sugar-tong splint with cast padding, Orthoglass, and Wilber bandages. A post splinting x-ray was obtained. The patient will be discharged to keep her appointment with Orthopedics on Saturday. Discharge Plan Discharge Clinical Impression: Encounter for post-traumatic wound check, Multiple skin tears, Blister, Closed fracture of right distal radius Patient Disposition: Home, Self-Care Additional Instructions: You seemed to have some skin tears on the back of your wrist which I think were oozing bloody fluid which soaked into your splint. A new dressing and a new splint has been applied. Please keep your wrist elevated to the level of your heart or higher to help reduce swelling and discomfort. You may continue to use acetaminophen (Tylenol) as needed for pain. Please keep your appointment on Saturday with the orthopedic office as scheduled. Return to the emergency room if significantly worse. Prescriptions: No Action oxycodone 5 mg tablet 5 mg PO Q6H PRN (Reason: pain) Qty: 20 0RF Rx Instructions: Partial Fill upon patient request. (DME) Ultra-Light [facility] [place] Instructions .Route Qty: 1 0RF Rx Instructions: As directed Referrals: [facility] Orthopedic Surgeons [Provider Group] Interventions: ED Discharge Assessment Last Done: 12/27/24 14:24 Discharge Date/Time: 12/27/24 14:27 Print Language: Frisian
[2024-12-27 14:24] VITALS: BP 179/66; PULSE 73; RESP 16; TEMP 36.4; O2SAT 98
== END 2024-12-27 14:27 | disposition home or self-care (01) ==
PROVIDERS: Emergency Provider Emergency Medicine; PCP Internal Medicine Nephrology
DX: S52.501A Unspecified fracture of the lower end of right radius, initial encounter for closed fracture (principal); Z48.00 Encounter for change or removal of nonsurgical wound dressing; T14.8XXA Other injury of unspecified body region, initial encounter; X58.XXXA Exposure to other specified factors, initial encounter; Y93.9 Activity, unspecified; Y92.9 Unspecified place or not applicable; Y99.9 Unspecified external cause status
CPT/HCPCS: 73100; 99283

== ENCOUNTER → 2024-12-27 13:17 | Outpatient (BNV) | payer MEDICARE, SELFPAY | PROVIDERS: Emergency Provider Emergency Medicine; PCP Internal Medicine Nephrology; Visit Provider Radiology Diagnostic Radiology | DX: S52.571D Other intraarticular fracture of lower end of right radius, subsequent encounter for closed fracture with routine healing (principal); S52.611D Displaced fracture of right ulna styloid process, subsequent encounter for closed fracture with routine healing | CPT/HCPCS: 73100 ==

== ENCOUNTER 2024-12-29 08:37 | Outpatient (REF) | payer MEDICARE, SELFPAY ==
--- OUTSIDE RECORDS SUMMARY | 2024-08-14 06:00 | XMS_ITS ---
Author Organization [facility] [place] Address [address] [facility] [address] [place] [address] Care Team Providers Care Fuller Brush Worker Name Role Phone Dat Camargo Unavailable [phone] REASON FOR VISIT New Patient Exam Encounters Encounter Location Date Provider Diagnosis [facility], [address] [place] [phone] 08/14/2024 Dat Camargo Plan Of Treatment No Information Progress Notes * APRIL SÁNCHEZLILIANOB:1949 (74 yo F)Acc No.[id number]:08/14/2024 Progress Notes Patient: SIMON DÍAZ Provider: Delia KEBEDE :1950 A ge:74 Y S ex:Female Date:08/14/2024 Address:[id number] Subjective: * Chief Complaints: * N ew Patient Exam * Ocular Surgical History: Objective: Vision Examination: * Electronic signature of Rush Camargo PA-C on 12/31/2024 at 09:18 AM EDT Sign off status: Pending * Provider: Delia KEBEDE Date: 08/14/2024 Generated for Kenney sanchez/Rogers/Armandoitting on: 0 12/31/2024 09:18 AM EDT
--- OUTSIDE RECORDS SUMMARY | 2024-09-03 09:15 | XMS_ITS ---
Author Organization [facility] [place] Address [address] [place] [address] Care Team Providers Care Wreath Inspector Name Role Phone Dat Camargo Unavailable [phone] REASON FOR VISIT New Patient Exam Encounters Encounter Location Date Provider Diagnosis [facility], [address] [place] [phone] 09/03/2024 Dat Camargo Plan Of Treatment No Information Progress Notes * APRIL SÁNCHEZLILIANOB:1949 (74 yo F)Acc No.[id number]:09/03/2024 Progress Notes Patient: SIMON DÍAZ Provider: Delia KEBEDE :1950 A ge:74 Y S ex:Female Date:09/03/2024 Address:[address] [id number] Subjective: * Chief Complaints: * N ew Patient Exam * Ocular Surgical History: Objective: Vision Examination: * Electronic signature of Rush Camargo PA-C on 12/31/2024 at 09:17 AM EDT Sign off status: Pending * Provider: Delia KEBEDE Date: 09/03/2024 Generated for Kenney sanchez/Rogers/Armandoitting on: 0 12/31/2024 09:17 AM EDT
--- OUTSIDE RECORDS SUMMARY | 2024-10-23 04:30 | XMS_ITS ---
Author Organization [facility] Address [address] [facility] [place] [address] Care Team Providers Care Geology Professor Name Role Phone Luz Radha Unavailable [phone] Encounters Encounter Location Date Provider [facility] [address] [place] [phone] 10/23/2024 Radha Escobar Plan Of Treatment No Information Progress Notes * Josh VICENTEEtelvinaOB:1949 (74 yo F)Acc No.[id number]:10/23/2024 Progress Notes Patient: [place] DÍAZ Provider: Raphael Escobar DPM :1950 A ge:74 Y S ex:Female Date:10/23/2024 Address:[address] [id number] Subjective: * Chief Complaints: * * Medical History: Objective: * Vitals: Assessment: Plan: * Treatment: * Images: * The named appointment provid er may or may not be the originator of this progress note, and it is not deemed complete until electronically signed by the appointment provider. Sign off status: Pending * Provider: Raphael Escobar DPM Date: 10/23/2024 Generated for Kenney sanchez/Rogers/Armandoitting on: 12/31/2024 09:18 AM EDT
--- NOTE | ~2024-12-29 | XR_ITS ---
EXAMINATION: XR WRIST 3 OR MORE VIEWS RIGHT HISTORY: M25.531 - Pain in right wrist COMPARISON: Comparison is made with the prior examination dated 12/27/2024. FINDINGS: Four casted views of the right breast are submitted. The fiberglass cast obscures fine bony detail. Again seen is a comminuted intra-articular fracture of the distal radius with moderate radial foreshortening. There is radial displacement of the carpus. There is ulnar positive variance. Again seen is a displaced fracture of the ulnar styloid. There is moderate degenerative change of the 1st carpometacarpal joint with joint space narrowing. The soft tissues are unremarkable. XR/XR wrist RT min 3V IMPRESSION: Comminuted intra-articular fracture of the distal radius as described with an associated ulnar styloid fracture, with a similar appearance to the prior study. Electronically signed by: Ezequiel Carmichael MD 12/29/2024 10:36 AM EDT
--- OUTSIDE RECORDS SUMMARY | 2024-12-31 09:17 | XMS_ITS | Clinical Summary ---
Author Organization [employer] Address [address] [facility] 7t [place] [address] Care Team Providers Care Remote Operations Producer Name Role Phone Unavailable Primary Care Provider [...]
--- OUTSIDE RECORDS SUMMARY | 2024-12-31 09:17 | XMS_ITS ---
Author Name [facility] Organization Unknown Care Team Organization Name Specialty Phone Email Start Date End Da [facility] 12/23/2024
--- OUTSIDE RECORDS SUMMARY | 2024-12-31 09:17 | XMS_ITS | Clinical Summary ---
Author Organization [facility] Address [address] [place] [address] [address] [place] [address] Phone Care Team Providers Care Linen Supervisor Name Role Phone Unavailable Primary Care Provider [...] [facility] [address] [facility] [address] [place] [address] Zain Conroy MD Essential hypertension; [...] Visit [facility] [address] [place] [address] Zain Conroy MD [address] [facility] [address] [place] [address] Health Maintenance Due Date Last Done Comments Pneumococcal Vaccine: 50+ Ye ars (1 of 2 - PCV) 02/23/1967 Influenza Vaccine (#1) 2025 Hepatitis B Vaccine Aged Out No longe r eligible based on patient's age to complete this topic Insurance [facility]
--- OUTSIDE RECORDS SUMMARY | 2024-12-31 09:17 | XMS_ITS | Encounter Summary ---
Author Organization [facility] Address [address] [facility] 200 [place] [address] Phone Care Team Providers Care Cementer Helper Name Role Phone Unavailable Primary Care Provider Unavailabl e Encounter Details Date Type Department Care Team (Late Contact Info) Description 02/20/2021 Orders Only [facility] [address] [facility] [address] [place] [address] Angélica Ferrer MA Hypo-osmolality and [...] Visit [facility] [address] [place] [phone] Zain Conroy MD [address] [facility] [address] [place] [phone] Scheduled Orders Name Type Priority Associated Diagnoses Orde r Schedule Basic metabolic panel Lab Routine Hypo-osmolality and hyponatremia Expected: 02/20/2021, Expires: 03/23/2022 documented as of this encounter Visit Diagnoses Diagnosis Hypo-osmolality and hyponatremia- Primary documented in this encounter
--- OUTSIDE RECORDS SUMMARY | 2024-12-31 09:17 | XMS_ITS | Encounter Summary ---
Author Organization [employer] Address [address] [facility] 7t [place] [address] Care Team Providers Care Double End Trimmer Name Role Phone Unavailable Primary Care Provider Unavailabl e Encounter Details Date Type Department Care Team (Late st Contact Info) Description 04/18/2023 Abstract [facility] [address] [place] [address] Adeline Pulliam BDS Social History Tobacco Use [...]
--- OUTSIDE RECORDS SUMMARY | 2024-12-31 09:18 | XMS_ITS | Patient Health Record ---
Author Organization [facility] [place] Address [address] [facility] [address] [place] [address] Care Team Providers Care General Manager Food Name Role Phone Dat Camargo Unavailable [phone] Autumn Harper Unavailable [phone] Reason For Referral No Information Encounters Encounter Location Date Provider Diagnosis [facility], [address] [address] 08/14/2024 Dat Camargo [facility], [address] [address] 09/03/2024 Dat Camargo [facility], [address] [address] 11/13/2024 Autumn Harper Plan Of Treatment No Information Insurance Providers Payer Name Payer Address Payer Phone Subscriber Number Group Number Insured Name Patient Relationship to Insured Coverage Start Date Coverage End Date [employer] Preferred [address] [place] [address] [id number] SIMON SÁNCHEZ Self - patient is the insured
--- OUTSIDE RECORDS SUMMARY | 2024-12-31 09:18 | XMS_ITS | Patient Health Record ---
Author Organization [facility] Address [address] [place] [address] Care Team Providers Care Dairy Specialist Name Role Phone Radha Escobar Unavailable [phone] Reason For Referral No Information Encounters Encounter Location Date Provider Diagnosis [facility] [address] [place] [address] 08/07/2024 Radha Escobar [address] [address] 10/16/2024 Radha Escobar Plan Of Treatment No Information Insurance Providers Payer Name Payer Address Payer Phone Subscriber Number Group Number Insured Name Patient Relationship to Insured Coverage Start Date Coverage End Date Medicare [employer] [address] [place] [address] [phone] Magaly Vicente Self - patient is the insured [employer] Medicare Preferred [address] [place] [address] Magaly Vicente Self - patient is the insured
== END 2024-12-29 08:38 | disposition home or self-care (01) ==
LOC: HO.HOSX 08:37
PROVIDERS: Visit Provider Orthopaedic Surgery
DX: S52.501A Unspecified fracture of the lower end of right radius, initial encounter for closed fracture (principal); S52.611A Displaced fracture of right ulna styloid process, initial encounter for closed fracture; M25.531 Pain in right wrist; W01.0XXA Fall on same level from slipping, tripping and stumbling without subsequent striking against object, initial encounter; Y93.01 Activity, walking, marching and hiking
CPT/HCPCS: 25600; 73110; 99202

== ENCOUNTER 2024-12-29 10:08 | Outpatient (AMB) | payer MEDICARE, SELFPAY ==
--- OUTSIDE RECORDS SUMMARY | 2024-08-14 06:00 | XMS_ITS ---
Author Organization [facility] [place] Address [address] [facility] [address] [address] [place] [address] Care Team Providers Care Concrete Plant Laborer Name Role Phone Dat Camargo Unavailable [phone] REASON FOR VISIT New Patient Exam Encounters Encounter Location Date Provider Diagnosis [facility], [address] [place] [phone] 08/14/2024 Dat Camargo Plan Of Treatment No Information Progress Notes * APRIL SÁNCHEZLILIANOB:1949 (74 yo F)Acc No.[id number]:08/14/2024 Progress Notes Patient: SIMON DÍAZ Provider: Delia KEBEDE :1950 A ge:74 Y S ex:Female Date:08/14/2024 Address:[id number] Subjective: * Chief Complaints: * N ew Patient Exam * Ocular Surgical History: Objective: Vision Examination: * Electronic signature of Rush Camargo PA-C on 12/29/2024 at 10:51 AM EDT Sign off status: Pending * Provider: Delia KEBEDE Date: 0 08/14/2024 Generated for Kenney sanchez/Rogers/Armandoitting on: 0 12/29/2024 10:51 AM EDT
--- OUTSIDE RECORDS SUMMARY | 2024-09-03 09:15 | XMS_ITS ---
Author Organization [facility] [place] Address [address] [place] [address] Care Team Providers Care Escrow Manager Name Role Phone Dat Camargo Unavailable [phone] REASON FOR VISIT New Patient Exam Encounters Encounter Location Date Provider Diagnosis [facility], [address] [place] [phone] 09/03/2024 Dat Camargo Plan Of Treatment No Information Progress Notes * APRIL SÁNCHEZLILIANOB:1949 (74 yo F)Acc No.[id number]:09/03/2024 Progress Notes Patient: SIMON DÍAZ Provider: Delia KEBEDE :1950 A ge:74 Y S ex:Female Date:09/03/2024 Address:[address] [id number] Subjective: * Chief Complaints: * N ew Patient Exam * Ocular Surgical History: Objective: Vision Examination: * Electronic signature of Rush Camargo PA-C on 12/29/2024 at 10:51 AM EDT Sign off status: Pending * Provider: Delia KEBEDE Date: 09/03/2024 Generated for Kenney sanchez/Rogers/Armandoitting on: 0 12/29/2024 10:51 AM EDT
--- OUTSIDE RECORDS SUMMARY | 2024-10-23 04:30 | XMS_ITS ---
Author Organization [facility] Address [address] [facility] [place] [address] Care Team Providers Care Plant Biology Professor Name Role Phone Luz Radha Unavailable [phone] Encounters Encounter Location Date Provider [facility] [address] [place] [phone] 10/23/2024 Radha Escobar Plan Of Treatment No Information Progress Notes * Josh VICENTEEtelvinaOB:1949 (74 yo F)Acc No.[id number]:10/23/2024 Progress Notes Patient: [place] DÍAZ Provider: Raphael Escobar DPM :1950 A ge:74 Y S ex:Female Date:10/23/2024 Address:[address], [phone] Subjective: * Chief Complaints: * * Medical [...] 0 10/23/2024 Generated for Kenney sanchez/Rogers/Armandoitting on: 12/29/2024 10:52 AM EDT
--- NOTE | 2024-12-29 10:42 | MHC.OFFVIS ---
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 Seen at [facility] ED and as per ED note Patient states she tripped while walking down a step, she fell forward landing on outstretched hand, now with right wrist pain xrays done and fracture was confirmed. Patient was splinted and referred to orthopedics for further evaluation. Currently states she is in a lot of discomfort due to the splint being tight and has moved. States she swelling and bruising in her hand and fingers. Denies numbness or tingling in fingers. Allergies No Known Allergies Allergy (Verified 12/29/24 10:46) HPI HPI FC - RT distal radial fx/ulnar styloid DOI 12/24/24: Details: Magaly is a 74 year old right hand dominant woman who presents for a right distal radius & ulnar styloid fracture, S/P fall, DOI: 12/24/24. She complains of pain & discomfort in her wrist. She says her splint is causing some pain up with the elbow at the proximal extent of the splint. However, all in all she feels like she is doing fine and has been continuing to go to work. She lives alone and says she is not interested in surgery at this time. 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 Review of Systems Const All systems reviewed & are unremarkable except as noted in HPI and below Physical Exam Vital Signs: BMI result Body Mass Index 19.6 Const General: cooperative, healthy appearing and no acute distress Orientation/consciousness: patient oriented x3 HEENT Head: Yes normocephalic and Yes atraumatic Eyes EOM: EOMs intact bilaterally Resp Effort & Inspection: normal respiratory effort and able to speak in complete sentences Cardio Jugular venous distension: no JVD Skin General skin exam: turgor normal Rashes: no rashes Neuro General: patient oriented x3 Extrem Other: Evaluation of Right Upper Extremity: The patient is alert, oriented, and in no acute distress She is seen today in a Sugar-tong splint she is clean dry and intact Neuro: Median, Ulnar, Radial nerves motor and sensory intact and sensation is normal to the tips of all digits Vascular: Cap refill brisk ROM: She is comfortable, moving her hand around in clinic without pain, while in her splint She can flex & extend fingers & thumb She has some bruising to fingers Radiographs: 3 views of the right wrist were taken and viewed by me today in clinic. They show a comminuted distal radius fracture with radial shortening, loss of inclination, ulnar positivity, on the lateral she has ~2 degrees apex volar angulation. This is improved from about 20 degrees of apex volar angulation before reduction in the ER. There is also an ulnar styloid fracture Psych Appearance: grossly normal Affect: normal affect Attitude: cooperative Office Procedures AMB Fracture Care Details: Fracture care distal radius fracture 33928 Fracture Billing Code: Fracture Billing Code Assessment & Plan Assessment & Plan (1) Closed fracture of right distal radius: Code(s): S52.501A - Unspecified fracture of the lower end of right radius, initial encounter for closed fracture Category: Medical (2) Fracture of right ulnar styloid: Code(s): S52.611A - Displaced fracture of right ulna styloid process, initial encounter for closed fracture Category: Medical Plan Assessment & Plan: 1. Right distal radius fracture, comminuted with displacement S/P fall DOI: 12/24/24 2. Right ulnar styloid fracture, S/P fall DOI: 12/24/24 I educated her about this condition I discussed operative and non-operative treatment options at length I recommend surgery, but the patient declined. She says she lives alone and does not want to consider surgery at her age. I explained that her wrist is likely to heal somewhat out of alignment, and she is okay with this result We are leaving her in her postreduction sugar-tong splint until next week. I discussed activity modifications, she is to lift nothing heavier than a cellphone for the next 7-8 weeks She will perform gentle ROM exercises of her fingers at home while in her splint. She should keep this elevated at or above heart level Anticipate full fracture healing in 8-12 weeks She will follow up next week with X-rays, 3V R wrist, IP. Anticipate placement in short-arm cast depending on swelling. Scribed for Rayna Myers MD by Jesse Pineda, medical pathologist, on 12/29/24 at 10:45 AM, EST. Orders: Orders XR wrist RT min 3V Today M25.531 - Pain in right wrist Coding Level of Care Code New Pt Level 4 (21284) Diagnoses Closed fracture of right distal radius S52.501A Fracture of right ulnar styloid S52.611A CPT Codes Fracture Care - Fracture Billing Code: Fracture Billing Code ([id number])
[2024-12-29 10:43] VITALS: BMI 19.6
--- OUTSIDE RECORDS SUMMARY | 2024-12-29 10:51 | XMS_ITS | Clinical Summary ---
Author Organization [facility] Address [address] [place] [address] [address] [place] [address] Phone Care Team Providers Care Senior Cost Analyst Name Role Phone Unavailable Primary Care Provider Unavailabl e Allergies No known active allergies Medications loperamide (IMODIUM A-D) 2 MG tablet Take 1 tablet by mouth in the morning. 02/07/20 18 Active amLODIPine (NORVASC) 2.5 MG tabletIndications:Essen tial hypertension,Hypercalce vicky,Primary hyperparathyroidism (HCC) TAKE 1 TABLET(2.5 MG) BY MOUTH 1 TIME EACH DAY 30 tablet 2 04/30/20 24 Active amLODIPine (Norvasc) 2.5 MG tablet Take 1 tablet (2.5 mg total) by mouth 1 (one) time each day 90 tablet 3 04/30/20 24 025 Active atenolol (TENORMIN) 25 MG tabletIndications:Essen tial hypertension,Primary hyperparathyroidism (HCC),Hypercalcemia TAKE 1 TABLET(25 MG) BY MOUTH 1 TIME EACH DAY 90 tablet 3 11/22/19 25 Active Active Problems Problem Noted Date Diagnosed Date Essential hypertension 02/20/2021 Hypercalcemia 02/20/2021 Hyperparathyroidism 02/20/2021 Hypertensive renal disease 02/20/2021 Encounters Date Type Department Care Team Description 11/20/2024 Refill [facility] [address] [facility] [address] [place] [address] Zain Conroy MD Essential hypertension; Primary hyperparathyroidism (HCC); Hypercalcemia from Last 3 Months Family History Medical [...] Visit [facility] [address] [place] [address] Zain Conroy MD [address] [facility] [address] [place] [address] Health Maintenance Due Date Last Done Comments Pneumococcal Vaccine: 50+ Ye ars (1 of 2 - PCV) 02/23/1969 Influenza Vaccine (#1) 2025 Hepatitis B Vaccine Aged Out No longe r eligible based on patient's age to complete this topic Insurance [facility]
--- OUTSIDE RECORDS SUMMARY | 2024-12-29 10:51 | XMS_ITS | Patient Health Record ---
Author Organization [facility] Address [address] [place] [address] Care Team Providers Care Head Waiter/Waitress Banquet Name Role Phone Radha Escobar Unavailable [phone] Reason For Referral No Information Encounters Encounter Location Date Provider Diagnosis [facility] [address] [place] [address] 08/07/2024 Radha Escobar [address] [address] 10/16/2024 Radha Escobar Plan Of Treatment No Information Insurance Providers Payer Name Payer Address Payer Phone Subscriber Number Group Number Insured Name Patient Relationship to Insured Coverage Start Date Coverage End Date Medicare National Govt Svcs Inc [address] [place] [address] [phone] Magaly Vicente Self - patient is the insured [employer] Medicare Preferred [address] [place] [address] Magaly Vicente Self - patient is the insured
--- OUTSIDE RECORDS SUMMARY | 2024-12-29 10:51 | XMS_ITS | Clinical Summary ---
Author Organization [employer] Address [address] [facility] 7t [place] [address] Care Team Providers Care Health And Safety Technician Name Role Phone Unavailable Primary Care Provider [...] 2024 03/21/2022, 08/18/2020, 07/27/2020 Influenza Vaccine (#1) 2025 HIB Vaccines Aged Out No longer eligi [...] patient's age to complete this topic Meningococcal B Vaccine Aged Out No l onger eligible based on patient's age to complete [...] ADULT Routine 10/18/2016 1 2:00 AM EDT INTRAORAL - COMPLETE SERIES OF RADIOGRAPHIC IMAGES Routine 09/11/2016 12:00 AM EDT COMPREHENSIVE ORAL EVALUATION - NEW OR ESTABLISHED PATIENT Routine 09/11/2016 12:00 AM EDT from Last 3 Months or Most Recently Relevant to Health Maintenance Insurance DENTAL - HSN FULL (MEDICAID)
--- OUTSIDE RECORDS SUMMARY | 2024-12-29 10:51 | XMS_ITS | Encounter Summary ---
Author Organization [employer] Address [address] [facility] 7t [place] [address] Care Team Providers Care Radio Interference Expert Name Role Phone Unavailable Primary Care Provider Unavailabl e Encounter Details Date Type Department Care Team (Late st Contact Info) Description 04/18/2023 Abstract [facility] ADULT D[facility] [address] [place] [address] Adeline Pulliam BDS Social History Tobacco Use [...]
--- OUTSIDE RECORDS SUMMARY | 2024-12-29 10:51 | XMS_ITS | Encounter Summary ---
Author Organization [facility] Address [address] [facility] [address] [place] [address] Phone Care Team Providers Care Clinical Operations Manager Name Role Phone Unavailable Primary Care Provider Unavailabl e Encounter Details Date Type Department Care Team (Late Contact Info) Description 02/20/2021 Orders Only [facility] [address] [facility] [address] [place] [address] Angélica Ferrer MA Hypo-osmolality and [...] Visit [facility] [address] [place] [phone] Zain Conroy MD [address] [facility] [address] [place] [id number] Scheduled Orders Name Type Priority Associated Diagnoses Orde r Schedule Basic metabolic panel Lab Routine Hypo-osmolality and hyponatremia Expected: 02/20/2021, Expires: 03/23/2022 documented as of this encounter Visit Diagnoses Diagnosis Hypo-osmolality and hyponatremia- Primary documented in this encounter
--- OUTSIDE RECORDS SUMMARY | 2024-12-29 10:52 | XMS_ITS | Patient Health Record ---
Author Organization [facility] Address [address] [facility] [address] [place] [address] Care Team Providers Care Karate Instructor Name Role Phone Dat Camargo Unavailable [phone] Autumn Harper Unavailable [phone] Reason For Referral No Information Encounters Encounter Location Date Provider Diagnosis [facility] [address] [address] 08/14/2024 Dat Camargo [facility], [address] [address] 09/03/2024 Dat Camargo [facility] [address] [address] 11/13/2024 Autumn Harper Plan Of Treatment No Information Insurance Providers Payer Name Payer Address Payer Phone Subscriber Number Group Number Insured Name Patient Relationship to Insured Coverage Start Date Coverage End Date [employer] Pref[employer] [address] [place] [address] [id number] SIMON SÁNCHEZ Self - patient is the insured
== END 2024-12-29 11:00 | disposition home or self-care (01) ==
LOC: HO.HOS 10:09
PROVIDERS: Visit Provider Orthopaedic Surgery
DX: S52.501A Unspecified fracture of the lower end of right radius, initial encounter for closed fracture (principal); S52.611A Displaced fracture of right ulna styloid process, initial encounter for closed fracture
CPT/HCPCS: 25600; 99204

== ENCOUNTER → 2024-12-29 10:10 | Outpatient (BNV) | payer MEDICARE, SELFPAY | PROVIDERS: Visit Provider Radiology Diagnostic Radiology | DX: S52.611A Displaced fracture of right ulna styloid process, initial encounter for closed fracture (principal) | CPT/HCPCS: 73110 ==

== ENCOUNTER 2025-01-05 10:02 | Outpatient (AMB) | payer MEDICARE, SELFPAY ==
--- OUTSIDE RECORDS SUMMARY | 2024-08-14 06:00 | XMS_ITS ---
Author Organization [facility] [place] Address [address] [facility] [facility] [address] [place] [address] Care Team Providers Care Natural Resource Specialist Name Role Phone Dat Camargo Unavailable [phone] REASON FOR VISIT New Patient Exam Encounters Encounter Location Date Provider Diagnosis [facility], [address] [place] [phone] 08/14/2024 Dat Camargo Plan Of Treatment No Information Progress Notes * APRIL SÁNCHEZLILIANOB:1949 (74 yo F)Acc No.[id number]:08/14/2024 Progress Notes Patient: SIMON DÍAZ Provider: Delia KEBEDE :1950 A ge:74 Y S ex:Female Date:08/14/2024 Address:[id number] Subjective: * Chief Complaints: * N ew Patient Exam * Ocular Surgical History: Objective: Vision Examination: * Electronic signature of Rush Camargo PA-C on 01/05/2025 at 11:24 AM EDT Sign off status: Pending * Provider: Delia KEBEDE Date: 0 08/14/2024 Generated for Kenney sanchez/Rogers/Armandoitting on: 0 01/05/2025 11:24 AM EDT
--- OUTSIDE RECORDS SUMMARY | 2024-09-03 09:15 | XMS_ITS ---
Author Organization [facility] [place] Address [address] [place] [address] Care Team Providers Care Film Or Videotape Editor Name Role Phone Dat Camargo Unavailable [phone] REASON FOR VISIT New Patient Exam Encounters Encounter Location Date Provider Diagnosis [facility], [address] [place] [phone] 09/03/2024 Dat Camargo Plan Of Treatment No Information Progress Notes * APRIL SÁNCHEZLILIANOB:1949 (74 yo F)Acc No.[id number]:09/03/2024 Progress Notes Patient: SIMON DÍAZ Provider: Delia KEBEDE :1950 A ge:74 Y S ex:Female Date:09/03/2024 Address:[address] [id number] Subjective: * Chief Complaints: * N ew Patient Exam * Ocular Surgical History: Objective: Vision Examination: * Electronic signature of Rush Camargo PA-C on 01/05/2025 at 11:24 AM EDT Sign off status: Pending * Provider: Dleia KEBEDE Date: 09/03/2024 Generated for Kenney sanchez/Rogers/Armandoitting on: 0 01/05/2025 11:24 AM EDT
--- OUTSIDE RECORDS SUMMARY | 2024-10-23 04:30 | XMS_ITS ---
Author Organization [facility] Address [address] [facility] [place] [address] Care Team Providers Care Certified Personal Chef Name Role Phone Luz Radha Unavailable [phone] Encounters Encounter Location Date Provider [facility] [address] [place] [phone] 10/23/2024 Radha Escobar Plan Of Treatment No Information Progress Notes * Josh VICENTEEtelvinaOB:1949 (74 yo F)Acc No.[id number]:10/23/2024 Progress Notes Patient: [place] DÍAZ Provider: Raphael Escobar DPM :1950 A ge:74 Y S ex:Female Date:10/23/2024 Address:[address], [phone] Subjective: * Chief Complaints: * * Medical [...] 0 10/23/2024 Generated for Kenney sanchez/Rogers/Armandoitting on: 01/05/2025 11:24 AM EDT
[2025-01-05 10:17] VITALS: BMI 21.5
--- NOTE | 2025-01-05 10:17 | A.OFFVIS_ITS ---
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 At her last visit she stayed on postreduction sugar-tong splint until next week. Activity modifications were discussed, she is to lift nothing heavier than a cellphone for the next 7-8 weeks She will perform gentle ROM exercises of her fingers at home while in her splint. Currently states she has no pain just a lot of discomfort due to splint being heavy and becoming undone.. Allergies No Known Allergies Allergy (Verified 01/05/25 10:21) HPI HPI FC - RT distal radial fx/ulnar styloid DOI 12/24/24: Details: Magaly is a 74 year old right hand dominant woman who presents for a right distal radius & ulnar styloid fracture, S/P fall, DOI: 12/24/24. Her primary complaint is of discomfort from wearing her splint. She says the pain in her wrist has improved and is tolerable now. However, all in all she feels like she is doing fine and has been continuing to go to work. She lives alone and says she is not interested in surgery at this time. 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 Physical Exam Vital Signs: BMI result Body Mass Index 21.5 Extrem Other: Evaluation of Right Upper Extremity: The patient is alert, oriented, and in no acute distress Neuro: Median, Ulnar, Radial nerves motor and sensory intact and sensation is normal to the tips of all digits Vascular: Cap refill brisk ROM: She can bring her fingers closed towards a fist and back into extension She has some resolving fracture blistering seen when her splint was removed, dorsal & volar aspects Clinically significant radial deviation at the wrist Radiographs: 3 views of the right wrist were taken and viewed by me today in clinic. They show a comminuted intra-articular distal radius fracture with ~1cm radial shortening, significant loss of inclination, ulnar positivity, on the lateral she has ~2 degrees apex volar angulation. This is improved from ~20 degrees of apex volar angulation before reduction in the ER. There is also an ulnar styloid fracture Post reduction radiographs taken today show Office Procedures AMB Fracture Care Details: Fracture care: Please change the fracture code that was placed on 12/29/2024 [place] 0[address] to [address] to include the reduction we did today. Thank you Fracture Billing Code: Fracture Billing Code Assessment & Plan Assessment & Plan (1) Closed fracture of right distal radius: Code(s): S52.501A - Unspecified fracture of the lower end of right radius, initial encounter for closed fracture Category: Medical (2) Fracture of right ulnar styloid: Code(s): S52.611A - Displaced fracture of right ulna styloid process, initial encounter for closed fracture Category: Medical Plan Assessment & Plan: 1. Right distal radius fracture, comminuted with displacement S/P fall DOI: 12/24/24 2. Right ulnar styloid fracture, S/P fall DOI: 12/24/24 I educated her about this condition I discussed operative and non-operative treatment options at length I recommend surgery, but the patient declined. She says she lives alone and does not want to consider surgery at her age. I explained that her wrist is likely to heal somewhat out of alignment, and she is okay with this result I recommend & attempted reduction today in clinic, and conservative treatment in a cast Procedure #1: The risks and benefits of a gentle closed reduction were discussed with her and she wished to proceed with the reduction. I applied some gentle traction reducing the amount of radial deviation and shortening at the fracture site. Once assured that we could do this we went ahead and placed the 1st layer of fiberglass. I then held the reduction in the fiberglass cast material until it hardened and we obtained postreduction radiographs. The postreduction radiographs showed some clinical improvement particularly of the radial deviation. At this point the remainder of the cast was placed. She tolerated this well without complications. She was placed in a short arm cast, to be worn for the next 3 weeks I discussed activity modifications, she is to lift nothing heavier than a cellphone for the next 6-8 weeks She will perform gentle ROM exercises of her fingers at home She should keep this elevated at or above heart level Anticipate full fracture healing in 8-12 weeks She will follow up in 3-4 weeks with X-rays, 3V R wrist, OOP Please note that greater than 60 minutes was spent with this patient going over the history, evaluating the patient and radiographs, formulating possible treatment options, discussing them with the patient, and documenting the visit. Scribed for Rayna Myers MD by Jesse Pineda, medical equipment sales, on 01/05/25 at 10:15 AM, EST. Orders: Orders XR wrist RT min 3V Today M25.531 - Pain in right wrist XR wrist RT min 3V Today M25.531 - Pain in right wrist Coding Level of Care Code Global (67848) Diagnoses Closed fracture of right distal radius S52.501A Fracture of right ulnar styloid S52.611A CPT Codes Fracture Care - Fracture Billing Code: Fracture Billing Code ([id number])
--- OUTSIDE RECORDS SUMMARY | 2025-01-05 11:24 | XMS_ITS | Clinical Summary ---
Author Organization [employer] Address [address] [facility] 7t [place] [address] Care Team Providers Care Truck Striker Name Role Phone Unavailable Primary Care Provider [...]
--- OUTSIDE RECORDS SUMMARY | 2025-01-05 11:24 | XMS_ITS | Encounter Summary ---
Author Organization [facility] Address [address] [facility] [address] [place] [address] Phone Care Team Providers Care Security Guard Dispatcher Name Role Phone Unavailable Primary Care Provider Unavailabl e Encounter Details Date Type Department Care Team (Late Contact Info) Description 02/20/2021 Orders Only [facility] [address] [facility] [address] [place] [address] Angélica Ferrer MA Hypo-osmolality and [...] Visit [facility] [address] [place] [phone] Zain Conroy MD [address] [facility] [address] [place] [phone] Scheduled Orders Name Type Priority Associated Diagnoses Orde r Schedule Basic metabolic panel Lab Routine Hypo-osmolality and hyponatremia Expected: 02/20/2021, Expires: 03/23/2022 documented as of this encounter Visit Diagnoses Diagnosis Hypo-osmolality and hyponatremia- Primary documented in this encounter
--- OUTSIDE RECORDS SUMMARY | 2025-01-05 11:24 | XMS_ITS | Encounter Summary ---
Author Organization [employer] Address [address] [facility] 7t [place] [address] Care Team Providers Care Community Recreation Programmer Name Role Phone Unavailable Primary Care Provider Unavailabl e Encounter Details Date Type Department Care Team (Late st Contact Info) Description 04/18/2023 Abstract [facility] [address] [place] [address] Adeline Pulliam BDS Social History Tobacco Use [...]
--- OUTSIDE RECORDS SUMMARY | 2025-01-05 11:25 | XMS_ITS | Clinical Summary ---
Author Organization [facility] Address [address] [place] [address] [place] [address] Phone Care Team Providers Care Glass Sagger Name Role Phone Unavailable Primary Care Provider [...] [facility] [address] [facility] [address] [place] [address] Zain Conroy MD Essential hypertension; [...] Visit [facility] [address] [place] [address] Zain Conroy MD [address] [facility] [address] [place] [address] Health Maintenance Due Date Last Done Comments Pneumococcal Vaccine: 50+ Ye ars (1 of 2 - PCV) 02/23/1967 Influenza Vaccine (#1) 2025 Hepatitis B Vaccine Aged Out No longe r eligible based on patient's age to complete this topic Insurance [facility]
--- OUTSIDE RECORDS SUMMARY | 2025-01-05 11:25 | XMS_ITS | Patient Health Record ---
Author Organization [facility] [place] Address [address] [facility] [place] [address] Care Team Providers Care Power Press Tender Name Role Phone Dat Camargo Unavailable [phone] Autumn Harper Unavailable [phone] Reason For Referral No Information Encounters Encounter Location Date Provider Diagnosis [facility], [address] [address] 08/14/2024 Dat Camargo [facility], [address] [address] 09/03/2024 Dat Camargo [facility], [address] [address] 11/13/2024 Autumn Harper Plan Of Treatment No Information Insurance Providers Payer Name Payer Address Payer Phone Subscriber Number Group Number Insured Name Patient Relationship to Insured Coverage Start Date Coverage End Date [employer] Preferred [address] [place] [address] [id number] SIMON SÁNCHEZ Self - patient is the insured
== END 2025-01-05 11:32 | disposition home or self-care (01) ==
LOC: HO.HOS 10:03
PROVIDERS: PCP Internal Medicine Nephrology; Visit Provider Orthopaedic Surgery
DX: S52.501A Unspecified fracture of the lower end of right radius, initial encounter for closed fracture (principal); S52.611A Displaced fracture of right ulna styloid process, initial encounter for closed fracture
CPT/HCPCS: 25605; 99024

== ENCOUNTER 2025-01-05 10:53 | Outpatient (REF) | payer MEDICARE, SELFPAY ==
--- NOTE | ~2025-01-05 | XR_ITS ---
EXAMINATION: XR WRIST, RIGHT CLINICAL INFORMATION: M25.531 - Pain in right wrist , images labeled post reduction COMPARISON: Same day one hour earlier, December 29, 2024, and December 27, 2024 TECHNIQUE: PA, lateral, and oblique views of the right wrist. FINDINGS: Overlying splint remains in place. Again seen is an impacted comminuted intra-articular fracture of the distal radius and a transverse fracture across the base of ulnar styloid. Compared to images from one hour earlier, dorsal fragments of the distal radius are slightly less displaced. Angulation and height of radial styloid has improved. There is persistent impaction. There is persistent posttraumatic ulnar plus variance measuring 6 - 7 mm. XR/XR wrist RT min 3V IMPRESSION: Slight improvement of comminuted impacted distal radial fracture on post reduction images. Electronically signed by: Cole Hassan MD 01/05/2025 11:47 AM EDT
--- NOTE | ~2025-01-05 | XR_ITS ---
CLINICAL HISTORY: M25.531 - Pain in right wrist 3 view right wrist Comparison: DX/SR - XR WRIST 3 OR MORE VIEWS RIGHT - 12/29/24 10:10 EDT CR - XR WRIST RT MIN 3V - 12/24/24 21:36 EDT Findings: There is a comminuted intra-articular fracture of the distal radius with severe impaction and moderate displacement at the fracture site. The degree of impaction and displacement have worsened significantly since the prior study dated 12/24/2024. There is marked deformity of the wrist including shortening of the radius relative to the ulna. There are no significant changes of healing. There is a moderately displaced ulnar styloid avulsion fracture without change. No radiopaque foreign body. IMPRESSION: 1. Comminuted intra-articular fracture of the distal radius with worsening impaction and displacement and no interval changes of healing. 2. There is a displaced ulnar styloid avulsion fracture without change. This document has been electronically signed by: Mayelin Olivia MD on 01/06/2025 13:32:28
== END 2025-01-05 10:54 | disposition home or self-care (01) ==
LOC: HO.HOSX 10:53
PROVIDERS: Visit Provider Orthopaedic Surgery
DX: S52.571A Other intraarticular fracture of lower end of right radius, initial encounter for closed fracture (principal); S52.611A Displaced fracture of right ulna styloid process, initial encounter for closed fracture; W19.XXXA Unspecified fall, initial encounter
CPT/HCPCS: 25605; 73110; 99212

== ENCOUNTER → 2025-01-05 10:56 | Outpatient (BNV) | payer MEDICARE, SELFPAY | PROVIDERS: Visit Provider Radiology Diagnostic Radiology | DX: S52.571A Other intraarticular fracture of lower end of right radius, initial encounter for closed fracture (principal); S52.611A Displaced fracture of right ulna styloid process, initial encounter for closed fracture | CPT/HCPCS: 73110 ==

== ENCOUNTER 2025-01-26 13:08 | Outpatient (REF) | payer MEDICARE, SELFPAY ==
--- NOTE | ~2025-01-26 | XR_ITS ---
EXAMINATION: XR WRIST, LEFT CLINICAL INFORMATION: M25.532 - Pain in left wrist COMPARISON: 01/05/2025 TECHNIQUE: PA, lateral, and oblique views of the left wrist. FINDINGS: There is diffuse osteopenia A large splint is present on the prior examination has been removed. There is a splint over the region of the distal forearm. Again seen is an impacted intra-articular comminuted fracture involving the distal radius. There is increasing new bone formation consistent with healing. There is no change in alignment or position. There is a fracture through the base of the ulnar styloid with moderate medial distraction. There is 6 mm posttraumatic ulnar plus variance. There is chondrocalcinosis in the lunotriquetral joint. Moderate degenerative changes are present in the first carpal metacarpal joint with joint space narrowing, osteophytes, and subchondral sclerosis and cystic change. XR/XR wrist LT min 3V IMPRESSION: Continued healing of a distal radial fracture. Posttraumatic ulnar plus variance +6 mm possible ulnar lunate impaction. Moderate first CMC joint osteoarthritis. Lunotriquetral chondrocalcinosis. Electronically signed by: Cole Hassan MD 01/26/2025 02:30 PM EDT
--- OUTSIDE RECORDS SUMMARY | 2025-01-26 16:07 | XMS_ITS | Clinical Summary ---
Author Organization [employer] Address [address] [facility] 7t [place] [address] Care Team Providers Care Printing Equipment Mechanic Apprentice Name Role Phone Unavailable Primary Care Provider [...] 020, 09/11/2016, 12/22/2013 COVID-19 Vaccine ( season) 2025 03/21/2022, 08/18/2020, 07/27/2020 Influenza Vaccine (#1) 2025 [...]
--- OUTSIDE RECORDS SUMMARY | 2025-01-26 16:07 | XMS_ITS | Encounter Summary ---
Author Organization [facility] Address [address] [facility] [address] [place] [address] Phone Care Team Providers Care Director Market Research Name Role Phone Unavailable Primary Care Provider Unavailabl e Encounter Details Date Type Department Care Team (Late Contact Info) Description 02/20/2021 Orders Only [facility] [address] [facility] [address] [place] [address] Angélica Ferrer [place] Hypo-osmolality and [...] Visit [facility] [address] [place] [phone] Zain Conroy MD [address] [facility] [address] [place] [phone] Scheduled Orders Name Type Priority Associated Diagnoses Orde r Schedule Basic metabolic panel Lab Routine Hypo-osmolality and hyponatremia Expected: 02/20/2021, Expires: 03/23/2022 documented as of this encounter Visit Diagnoses Diagnosis Hypo-osmolality and hyponatremia- Primary documented in this encounter
--- OUTSIDE RECORDS SUMMARY | 2025-01-26 16:07 | XMS_ITS | Encounter Summary ---
Author Organization [employer] Address [address] [facility] 7t [place] [address] Care Team Providers Care Computational Scientist Name Role Phone Unavailable Primary Care Provider Unavailabl e Encounter Details Date Type Department Care Team (Late st Contact Info) Description 04/18/2023 Abstract [facility] [address] [place] [address] dAeline Pulliam BDS Social History Tobacco Use Types [...]
--- OUTSIDE RECORDS SUMMARY | 2025-01-26 16:07 | XMS_ITS | Clinical Summary ---
Author Organization [facility] Address [address] [place] [address] [address] [place] [address] Phone Care Team Providers Care Blueprinter Name Role Phone Unavailable Primary Care Provider [...] [facility] [address] [facility] [address] [place] [address] Zain Conroy MD Essential hypertension; [...] Visit [facility] [address] [place] [address] Zain Conroy MD [address] [facility] [address] [place] [address] Health Maintenance Due Date Last Done Comments Pneumococcal Vaccine: 50+ Ye ars (1 of 2 - PCV) 02/23/1967 Influenza Vaccine (#1) 2025 Hepatitis B Vaccine Aged Out No longe r eligible based on patient's age to complete this topic Insurance [facility]
== END 2025-01-26 13:09 | disposition home or self-care (01) ==
LOC: HO.HOSX 13:08
PROVIDERS: Visit Provider Orthopaedic Surgery
DX: S52.571A Other intraarticular fracture of lower end of right radius, initial encounter for closed fracture (principal); S52.611A Displaced fracture of right ulna styloid process, initial encounter for closed fracture; W19.XXXA Unspecified fall, initial encounter
CPT/HCPCS: 73110; 99212

== ENCOUNTER 2025-01-26 13:47 | Outpatient (AMB) | payer MEDICARE, SELFPAY ==
--- OUTSIDE RECORDS SUMMARY | 2024-08-14 06:00 | XMS_ITS ---
Author Organization [facility] [place] Address [address] [facility] [address] [place] [address] Care Team Providers Care Jewel Hole Finish Opener Name Role Phone Dat Camargo Unavailable [phone] REASON FOR VISIT New Patient Exam Encounters Encounter Location Date Provider Diagnosis [facility], [address] [place] [phone] 08/14/2024 Dat Camargo Plan Of Treatment No Information Progress Notes * APRIL SÁNCHEZLILIANOB:1949 (74 yo F)Acc No.[id number]:08/14/2024 Progress Notes Patient: SIMON DÍAZ Provider: Delia KEBEDE :1950 A ge:74 Y S ex:Female Date:08/14/2024 Address:[id number] Subjective: * Chief Complaints: * N ew Patient Exam * Ocular Surgical History: Objective: Vision Examination: * Electronic signature of Rush Camargo PA-C on 01/26/2025 at 05:00 PM EDT Sign off status: Pending * Provider: Delia KEBEDE Date: 08/14/2024 Generated for Kenney sanchez/Rogers/Armandoitting on: 0 01/26/2025 05:00 PM EDT
--- OUTSIDE RECORDS SUMMARY | 2024-09-03 09:15 | XMS_ITS ---
Author Organization [facility] [place] Address [address] [place] [address] Care Team Providers Care Concrete Block Layer Name Role Phone Dat Camargo Unavailable [phone] REASON FOR VISIT New Patient Exam Encounters Encounter Location Date Provider Diagnosis [facility], [address] [place] [phone] 09/03/2024 Dat Camargo Plan Of Treatment No Information Progress Notes * APRIL SÁNCHEZLILIANOB:1949 (74 yo F)Acc No.[id number]:09/03/2024 Progress Notes Patient: SIMON DÍAZ Provider: Delia KEBEDE :1950 A ge:74 Y S ex:Female Date:09/03/2024 Address:[address] [id number] Subjective: * Chief Complaints: * N ew Patient Exam * Ocular Surgical History: Objective: Vision Examination: * Electronic signature of Rush Camargo PA-C on 01/26/2025 at 04:59 PM EDT Sign off status: Pending * Provider: Delia KEBEDE Date: 09/03/2024 Generated for Kenney sanchez/Rogers/eTcoleenitting on: 0 01/26/2025 04:59 PM EDT
--- OUTSIDE RECORDS SUMMARY | 2024-10-23 04:30 | XMS_ITS ---
Author Organization [facility] Address [address] [facility] [place] [address] Care Team Providers Care Yard Supervisor Name Role Phone Luz Radha Unavailable [phone] Encounters Encounter Location Date Provider [facility] [address] [place] [phone] 10/23/2024 Radha Escobar Plan Of Treatment No Information Progress Notes * Josh VICENTEEtelvinaOB:1949 (74 yo F)Acc No.[id number]:10/23/2024 Progress Notes Patient: [place] DÍAZ Provider: Raphael Escobar DPM :1950 A ge:74 Y S ex:Female Date:10/23/2024 Address:[address] [phone] Subjective: * Chief Complaints: * * Medical History: Objective: * Vitals: Assessment: Plan: * Treatment: * Images: * The named appointment provid er may or may not be the originator of this progress note, and it is not deemed complete until electronically signed by the appointment provider. Sign off status: Pending * Provider: Raphael Escobar DPM Date: 10/23/2024 Generated for Kenney sanchez/Rogers/Armandoitting on: 01/26/2025 05:00 PM EDT
--- NOTE | 2025-01-26 14:00 | A.OFFVIS_ITS ---
Intake Visit Reasons: OV-RTdistal radial fx/ulnar styloid DOI 12/24/24- Intake Note: Magaly is a 74 year old right hand dominant woman who presents for a right distal radius & ulnar styloid fracture, S/P fall, DOI: 12/24/24. At her last visit patient was placed in a short arm cast, she is to lift nothing heavier than a cellphone for the next 6-8 weeks, she will perform gentle ROM exercises of her fingers at home. Today cast removed and xrays updated on office. Patient reports she is doing well, states no pain just tenderness coming out of cast. Allergies No Known Allergies Allergy (Verified 01/26/25 14:18) HPI HPI OV-RTdistal radial fx/ulnar styloid DOI 12/24/24-: Details: Magaly is a 74 year old right hand dominant woman who returns for her right distal radius & ulnar styloid fracture, S/P fall, DOI: 12/24/24. She did not want to have surgery. This was reduced in clinic on 01/05/23 and placed in a short-arm cast. She says she is doing well, with only some tenderness since her cast was removed. All in all she feels like she is doing fine and has been continuing to go to work. She lives alone. 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 They show a comminuted intra-articular distal radius fracture with ~1cm radial shortening, significant loss of inclination, ulnar positivity, on the lateral she has ~2 degrees apex volar angulation. Not much change in alignment compare to previous post-reduction radiographs. There is also an ulnar styloid fracture. There does appear to be some interval bony healing. Assessment & Plan Assessment & Plan (1) Closed fracture of right distal radius: Code(s): S52.501A - Unspecified fracture of the lower end of right radius, initial encounter for closed fracture Category: Medical (2) Fracture of right ulnar styloid: Code(s): S52.611A - Displaced fracture of right ulna styloid process, initial encounter for closed fracture Category: Medical Plan Assessment & Plan: 1. Right distal radius fracture, comminuted with displacement S/P fall DOI: 12/24/24 Reduced in clinic: 01/05/25 2. Right ulnar styloid fracture, S/P fall DOI: 12/24/24 I educated her about this condition This has been managed conservatively in a cast She was fitted for a velcro wrist splint, to be worn like a cast except for showering for the next 4 weeks. She can remove this when at home at rest in 2 weeks, as of 02/19/25 I discussed activity modifications, she is to lift nothing heavier than a cellphone for the next 4 weeks. They should also avoid any heavy impact activities, falls, or sports activities for the next 8 weeks She will perform gentle ROM exercises of her fingers at home She should keep this elevated at or above heart level Anticipate full fracture healing in 8-12 weeks She will follow up in 4 weeks with X-rays, 3V R wrist, OOP. Discontinue splint based on bony healing Scribed for Rayna Myers MD by Jesse Pineda medical records assistant, on 01/26/25 at 2:10 PM, EST. Orders: Orders XR wrist LT min 3V Today M25.532 - Pain in left wrist Coding Level of Care Code Global (74631) Diagnoses Closed fracture of right distal radius S52.501A Fracture of right ulnar styloid S52.611A
--- OUTSIDE RECORDS SUMMARY | 2025-01-26 17:00 | XMS_ITS | Patient Health Record ---
Author Organization [facility] [place] Address [address] [facility] [address] [place] [address] Care Team Providers Care Inside Sales Executive Name Role Phone Dat Camargo Unavailable [phone] Autumn Harper Unavailable [phone] Reason For Referral No Information Encounters Encounter Location Date Provider Diagnosis [facility], [address] [address] 08/14/2024 Dat Camargo [facility], [address] [address] 09/03/2024 Dat Camargo [facility], [address] [address] 11/13/2024 Autumn Harper Plan Of Treatment No Information Insurance Providers Payer Name Payer Address Payer Phone Subscriber Number Group Number Insured Name Patient Relationship to Insured Coverage Start Date Coverage End Date [employer] Preferred [address] [place] [address] [id number] SIMON SÁNCHEZ Self - patient is the insured
--- OUTSIDE RECORDS SUMMARY | 2025-01-26 17:00 | XMS_ITS | Patient Health Record ---
Author Organization [facility] Address [address] [place] [address] Care Team Providers Care Aeronautical Research Engineer Name Role Phone Radha Escobar Unavailable [phone] Reason For Referral No Information Encounters Encounter Location Date Provider Diagnosis [facility] [address] [place] [address] 08/07/2024 Radha Escobar [address] [address] 10/16/2024 Radha Escobar Plan Of Treatment No Information Insurance Providers Payer Name Payer Address Payer Phone Subscriber Number Group Number Insured Name Patient Relationship to Insured Coverage Start Date Coverage End Date Medicare National [employer] [address] [place] [address] [phone] Magaly Vicente Self - patient is the insured [employer] Medicare Preferred [address] [place] [address] Magaly Vicente Self - patient is the insured
== END 2025-01-26 15:35 | disposition home or self-care (01) ==
LOC: HO.HOS 13:48
PROVIDERS: Visit Provider Orthopaedic Surgery
DX: S52.501A Unspecified fracture of the lower end of right radius, initial encounter for closed fracture (principal); S52.611A Displaced fracture of right ulna styloid process, initial encounter for closed fracture
CPT/HCPCS: 99024

== ENCOUNTER → 2025-01-26 13:50 | Outpatient (BNV) | payer MEDICARE, SELFPAY | PROVIDERS: Visit Provider Radiology Diagnostic Radiology | DX: M18.12 Unilateral primary osteoarthritis of first carpometacarpal joint, left hand (principal) | CPT/HCPCS: 73110 ==

== ENCOUNTER 2025-02-24 09:44 | Outpatient (AMB) | payer MEDICARE, SELFPAY ==
--- OUTSIDE RECORDS SUMMARY | 2024-08-14 06:00 | XMS_ITS ---
Author Organization [facility] [place] Address [address] [facility] [address] [place] [address] Care Team Providers Care Communications Agent Name Role Phone Dat Camargo Unavailable [phone] REASON FOR VISIT New Patient Exam Encounters Encounter Location Date Provider Diagnosis [facility], [address] [place] [phone] 08/14/2024 Dat Camargo Plan Of Treatment No Information Progress Notes * APRIL SÁNCHEZLILIANOB:1949 (75 yo F)Acc No.[id number]:08/14/2024 Progress Notes Patient: SIMON DÍAZ Provider: Delia KEBEDE :1950 A ge:74 Y S ex:Female Date:08/14/2024 Address:[id number] Subjective: * Chief Complaints: * N ew Patient Exam * Ocular Surgical History: Objective: Vision Examination: * Electronic signature of Rush Camargo PA-C on 2025 at 11:26 AM EDT Sign off status: Pending * Provider: Delia KEBEDE Date: 0 08/14/2024 Generated for Kenney sanchez/Rogers/eTcoleenitting on: 1 11:26 AM EDT
--- OUTSIDE RECORDS SUMMARY | 2024-09-03 09:15 | XMS_ITS ---
Author Organization [facility] [place] Address [address] [place] [address] Care Team Providers Care Pin Game Machine Inspector Name Role Phone Dat Camargo Unavailable [phone] REASON FOR VISIT New Patient Exam Encounters Encounter Location Date Provider Diagnosis [facility], [address] [place] [phone] 09/03/2024 Dat Camargo Plan Of Treatment No Information Progress Notes * APRIL SÁNCHEZLILIANOB:1949 (75 yo F)Acc No.[id number]:09/03/2024 Progress Notes Patient: SIMON DÍAZ Provider: Delia KEBEDE :1950 A ge:74 Y S ex:Female Date:09/03/2024 Address:[id number] Subjective: * Chief Complaints: * N ew Patient Exam * Ocular Surgical History: Objective: Vision Examination: * Electronic signature of Rush Camargo PA-C on 2025 at 11:26 AM EDT Sign off status: Pending * Provider: Delia KEBEDE Date: 0 09/03/2024 Generated for Kenney sanchez/Rogers/eTcoleenitting on: 1 11:26 AM EDT
--- OUTSIDE RECORDS SUMMARY | 2024-10-23 04:30 | XMS_ITS ---
Author Organization [facility] Address [address] [facility] [place] [address] Care Team Providers Care Clinical Trial Educator Name Role Phone Radha Escobar Unavailable [phone] Encounters Encounter Location Date Provider [facility] [address] [place] [phone] 10/23/2024 Radha Escobar Plan Of Treatment No Information Progress Notes * Josh VICENTEEtelvinaOB:1949 (75 yo F)Acc No.[id number]:10/23/2024 Progress Notes Patient: [place] DÍAZ Provider: Raphael Escobar DPM :1950 A ge:74 Y S ex:Female Date:10/23/2024 Address:[address] [phone] Subjective: * Chief Complaints: * * Medical [...] 0 10/23/2024 Generated for Kenney sanchez/Rogers/Armandoitting on: 11:27 AM EDT
[2025-02-24 09:52] VITALS: BMI 21.5
--- NOTE | 2025-02-24 09:52 | MHC.OFFVIS ---
Vital Signs 02/24/25 09:52 Height 5 ft 1 in Weight 114 lb BMI 21.5 Intake Visit Reasons: OV-RTdistal radial fx/ulnar styloid DOI 12/24/24- Intake Note: Magaly is a 74 year old right hand dominant woman who presents for a right distal radius & ulnar styloid fracture, S/P fall, DOI: 12/24/24. At her last visit patient was fitted for a velcro wrist brace. She was advise to remove it to work on gentle ROM. Today she is here for a ROM check. Patient reports she feels no pain but is feeling tightness. She continues to wear her brace with activities and would like to discuss use of K-tape on her wrist. Allergies No Known Allergies Allergy (Verified 02/24/25 10:00) HPI HPI OV-RTdistal radial fx/ulnar styloid DOI 12/24/24-: Details: Magaly is a 74 year old right hand dominant woman who returns for her right distal radius & ulnar styloid fracture, S/P fall, DOI: 12/24/24. She did not want to have surgery. This was reduced in clinic on 01/05/23 and placed in a short-arm cast. She is here for a ROM check. She says she is doing well, with no pain, but she complaints of feeling tightness in her wrist. All in all she feels like she is doing fine, has no pain, and has been continuing to go to work. She lives alone. 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 Review of Systems Const All systems reviewed & are unremarkable except as noted in HPI and below Physical Exam Vital Signs: BMI result Body Mass Index 21.5 Const General: no acute distress and alert Orientation/consciousness: patient oriented x3 Neuro General: patient oriented x3 Extrem Other: Evaluation of Right Upper Extremity: The patient is alert, oriented, and in no acute distress Neuro: Median, Ulnar, Radial nerves motor and sensory intact and sensation is normal to the tips of all digits Vascular: Cap refill brisk ROM: She can make a fist & extend all her digits Again we see radial deviation at the wrist Fracture site non-tender Pronation: full Supination: ~60 degrees Radiographs: 3 views of the right wrist were taken and viewed by me today in clinic. They show a comminuted intra-articular distal radius fracture with ~1cm radial shortening, significant loss of inclination, ulnar positivity, on the lateral she has ~2 degrees apex volar angulation. Not much change in alignment compare to previous post-reduction radiographs. There is also an ulnar styloid fracture. There does appear to be increased interval bony healing. Psych Appearance: grossly normal Affect: normal affect Attitude: cooperative Assessment & Plan Assessment & Plan (1) Closed fracture of right distal radius: Code(s): S52.501A - Unspecified fracture of the lower end of right radius, initial encounter for closed fracture Category: Medical (2) Fracture of right ulnar styloid: Code(s): S52.611A - Displaced fracture of right ulna styloid process, initial encounter for closed fracture Category: Medical Plan Assessment & Plan: 1. Right distal radius fracture, comminuted with displacement S/P fall DOI: 12/24/24 Reduced in clinic: 01/05/25 2. Right ulnar styloid fracture, S/P fall DOI: 12/24/24 I educated her about this condition This has been managed conservatively in a cast as the patient declined operative treatment options. She will continue to wear her splint when out of the house with daily activities for the next 2-3 weeks. She will remove this at home, wean out of her splint over the next few weeks. I discussed activity modifications, she is to lift nothing heavy for the next 4 weeks. She is to slowly increase her weight limit as tolerated over the next month. They should also avoid any heavy impact activities, falls, or sports activities for the next 4 weeks She will perform gentle ROM exercises at home Anticipate full fracture healing in 8-12 weeks We discussed a referral to OT hand therapy. I am not recommending OT at this time as I am concerned she may overuse her wrist and cause increased pain. She will follow up prn Scribed for Rayna Myers MD by Jesse Pineda, medical insurance verifier, on 02/24/25 at 10:05 AM, EST. Orders: Orders XR wrist RT min 3V Today M25.531 - Pain in right wrist Coding Level of Care Code Global (97427) Diagnoses Closed fracture of right distal radius S52.501A Fracture of right ulnar styloid S52.611A
--- OUTSIDE RECORDS SUMMARY | 2025-02-24 11:26 | XMS_ITS | Patient Health Record ---
Author Organization [facility] Address [address] [place] [address] Care Team Providers Care Global Transportation Manager Name Role Phone Radha Escobar Unavailable [phone] Reason For Referral No Information Encounters Encounter Location Date Provider Diagnosis [facility] [address] [place] [address] 08/07/2024 Radha Escobar [address] [address] 10/16/2024 Radha Escobar Plan Of Treatment No Information Insurance Providers Payer Name Payer Address Payer Phone Subscriber Number Group Number Insured Name Patient Relationship to Insured Coverage Start Date Coverage End Date Medicare National Govt Svcs Inc [address] [facility] [place] [address] [phone] Magaly Vicente Self - patient is the insured [employer] Medicare Preferred [address] [place] [address] Magaly Vicente Self - patient is the insured
--- OUTSIDE RECORDS SUMMARY | 2025-02-24 11:26 | XMS_ITS | Clinical Summary ---
Author Organization [employer] Address [address] [facility] [address] [place] [address] Care Team Providers Care Cook Roast Name Role Phone Unavailable Primary Care Provider [...]
--- OUTSIDE RECORDS SUMMARY | 2025-02-24 11:27 | XMS_ITS | Patient Health Record ---
Author Organization [facility] [place] Address [address] [facility] [address] [place] [address] Care Team Providers Care Brim Shaper Name Role Phone Dat Camargo Unavailable [phone] Autumn Harper Unavailable [phone] Reason For Referral No Information Encounters Encounter Location Date Provider Diagnosis [facility], [address] [address] 08/14/2024 Dat Camargo [facility], [address] [address] 09/03/2024 Dat Camargo [facility], [address] [address] 11/13/2024 Autumn Harper Plan Of Treatment No Information Insurance Providers Payer Name Payer Address Payer Phone Subscriber Number Group Number Insured Name Patient Relationship to Insured Coverage Start Date Coverage End Date [employer] Preferred [address] [place] [address] [id number] SIMON SÁNCHEZ Self - patient is the insured
--- OUTSIDE RECORDS SUMMARY | 2025-02-24 11:27 | XMS_ITS | Encounter Summary ---
Author Organization [employer] Address [address] [facility] 7t [place] [address] Care Team Providers Care Statistical Secretary Name Role Phone Unavailable Primary Care Provider Unavailabl e Encounter Details Date Type Department Care Team (Late st Contact Info) Description 04/18/2023 Abstract [facility] [address] [place] [address] Adeline Pulliam BDS Social History Tobacco Use [...]
== END 2025-02-24 10:11 | disposition home or self-care (01) ==
LOC: HO.HOS 09:45
PROVIDERS: Visit Provider Orthopaedic Surgery
DX: S52.501A Unspecified fracture of the lower end of right radius, initial encounter for closed fracture (principal); S52.611A Displaced fracture of right ulna styloid process, initial encounter for closed fracture
CPT/HCPCS: 99024

== ENCOUNTER → 2025-02-24 09:46 | Outpatient (BNV) | payer MEDICARE, SELFPAY | PROVIDERS: Visit Provider Radiology Diagnostic Radiology | DX: S52.571D Other intraarticular fracture of lower end of right radius, subsequent encounter for closed fracture with routine healing (principal) | CPT/HCPCS: 73110 ==

== ENCOUNTER 2025-02-24 11:34 | Outpatient (REF) | payer MEDICARE, SELFPAY ==
--- OUTSIDE RECORDS SUMMARY | 2024-08-14 06:00 | XMS_ITS ---
Author Organization [facility] [place] Address [address] [facility] [address] [place] [address] Care Team Providers Care Herb Doctor Name Role Phone Dat Camargo Unavailable [phone] REASON FOR VISIT New Patient Exam Encounters Encounter Location Date Provider Diagnosis [facility], [address] [place] [phone] 08/14/2024 Dat Camargo Plan Of Treatment No Information Progress Notes * APRIL SÁNCHEZLILIANOB:1949 (75 yo F)Acc No.[id number]:08/14/2024 Progress Notes Patient: SIMON DÍAZ Provider: Delia KEBEDE :1950 A ge:74 Y S ex:Female Date:08/14/2024 Address:[id number] Subjective: * Chief Complaints: * N ew Patient Exam * Ocular Surgical History: Objective: Vision Examination: * Electronic signature of Rush Camargo PA-C on 02/25/2025 at 02:48 PM EDT Sign off status: Pending * Provider: Delia KEBEDE Date: 0 08/14/2024 Generated for Kenney sanchez/Rogers/eTcoleenitting on: 1 02:48 PM EDT
--- OUTSIDE RECORDS SUMMARY | 2024-09-03 09:15 | XMS_ITS ---
Author Organization [facility] [place] Address [address] [place] [address] Care Team Providers Care Automatic Log Cut Off Sawyer Name Role Phone Dat Camargo Unavailable [phone] REASON FOR VISIT New Patient Exam Encounters Encounter Location Date Provider Diagnosis [facility], [address] [place] [phone] 09/03/2024 Dat Camargo Plan Of Treatment No Information Progress Notes * APRIL SÁNCHEZLILIANOB:1949 (75 yo F)Acc No.[id number]:09/03/2024 Progress Notes Patient: SIMON DÍAZ Provider: Delia KEBEDE :1950 A ge:74 Y S ex:Female Date:09/03/2024 Address:[address] [id number] Subjective: * Chief Complaints: * N ew Patient Exam * Ocular Surgical History: Objective: Vision Examination: * Electronic signature of Rush Camargo PA-C on 02/25/2025 at 02:48 PM EDT Sign off status: Pending * Provider: Delia KEBEDE Date: 0 09/03/2024 Generated for Kenney sanchez/Rogers/eTcoleenitting on: 02:48 PM EDT
--- OUTSIDE RECORDS SUMMARY | 2024-10-23 04:30 | XMS_ITS ---
Author Organization [facility] Address [address] [place] [address] Care Team Providers Care Physiologist Name Role Phone Radha Escobar Unavailable [phone] Encounters Encounter Location Date Provider [facility] [address] [place] [phone] 10/23/2024 Radha Escobar Plan Of Treatment No Information Progress Notes * Josh VICENTEEtelvinaOB:1949 (75 yo F)Acc No.[id number]:10/23/2024 Progress Notes Patient: [place] DÍAZ Provider: Raphael Escobar DPM :1950 A ge:74 Y S ex:Female Date:10/23/2024 Address:[address] [id number] Subjective: * Chief Complaints: * * Medical History: Objective: * Vitals: Assessment: Plan: * Treatment: * Images: * The named appointment provid er may or may not be the originator of this progress note, and it is not deemed complete until electronically signed by the appointment provider. Sign off status: Pending * Provider: Raphael Escobar DPM Date: 0 10/23/2024 Generated for Kenney sanchez/Rogers/Armandoitting on: 02:48 PM EDT
--- NOTE | ~2025-02-24 | XR_ITS ---
CLINICAL HISTORY: M25.531 - Pain in right wrist 3 views right wrist Comparison: 01/05/2025 Findings: There is a healing comminuted impacted intra-articular fracture of the distal radius with displacement and overriding of the distal fragments. The fracture fragments are not markedly changed in position from previous exam. There is ongoing callus formation. An ununited fracture of the ulnar styloid is unchanged. No radiopaque foreign body. Impression: Healing comminuted intra-articular fracture of the distal radius with ongoing callus formation. This document has been electronically signed by: Zain Jewell MD on 02/25/2025 17:05:41
--- OUTSIDE RECORDS SUMMARY | 2025-02-25 14:48 | XMS_ITS | Patient Health Record ---
Author Organization [facility] Address [address] [place] [address] Care Team Providers Care Launch Steward Name Role Phone Radha Escobar Unavailable [phone] Reason For Referral No Information Encounters Encounter Location Date Provider Diagnosis [facility] [address] [place] [address] 08/07/2024 Radha Escobar [address] [address] 10/16/2024 Radha Escobar Plan Of Treatment No Information Insurance Providers Payer Name Payer Address Payer Phone Subscriber Number Group Number Insured Name Patient Relationship to Insured Coverage Start Date Coverage End Date Medicare National Govt Svcs Inc [address] [place] [address] [phone] Magaly Vicente Self - patient is the insured [employer] Medicare Preferred [address] [place] [address] Magaly Vicente Self - patient is the insured
--- OUTSIDE RECORDS SUMMARY | 2025-02-25 14:48 | XMS_ITS | Clinical Summary ---
Author Organization [facility] Address [address] [facility] 7t [place] [address] Care Team Providers Care Change Management Specialist Name Role Phone Unavailable Primary Care Provider [...]
--- OUTSIDE RECORDS SUMMARY | 2025-02-25 14:48 | XMS_ITS | Encounter Summary ---
Author Organization [employer] Address [address] [facility] 7t [place] [address] Care Team Providers Care Rapier Insertion Loom Fixer Name Role Phone Unavailable Primary Care Provider Unavailabl e Encounter Details Date Type Department Care Team (Late st Contact Info) Description 04/18/2023 Abstract [facility] [address] [place] [address] Adeline Pulliam BDS Social History Tobacco Use [...]
--- OUTSIDE RECORDS SUMMARY | 2025-02-25 14:48 | XMS_ITS | Encounter Summary ---
Author Organization [facility] Address [address] [facility] [address] [place] [address] Phone Care Team Providers Care Whizzer Hand Name Role Phone Unavailable Primary Care Provider Unavailabl e Encounter Details Date Type Department Care Team (Late Contact Info) Description 02/20/2021 Orders Only [facility] [address] [facility] [address] [place] [address] Angélica Ferrer MA Hypo-osmolality and [...] Visit [facility] [address] [place] [phone] Zain Conroy MD [address] [facility] [address] [place] [address] Scheduled Orders Name Type Priority Associated Diagnoses Orde r Schedule Basic metabolic panel Lab Routine Hypo-osmolality and hyponatremia Expected: 02/20/2021, Expires: 03/23/2022 documented as of this encounter Visit Diagnoses Diagnosis Hypo-osmolality and hyponatremia- Primary documented in this encounter
--- OUTSIDE RECORDS SUMMARY | 2025-02-25 14:48 | XMS_ITS | Clinical Summary ---
Author Organization [facility] Address [address] [place] [address] Phone Care Team Providers Care Director Quality Systems Name Role Phone Unavailable Primary Care Provider [...] 02/20/2021 Hyperparathyroidism 02/20/2021 Hypertensive renal disease 02/20/2021 Family History Medical History Relation Comments Dementia [...] Visit [facility] [address] [place] [address] Zain Conroy MD [address] [facility] [address] [place] [address] Health Maintenance Due Date Last Done Comments Pneumococcal Vaccine: 50+ Ye ars (1 of 2 - PCV) 02/23/1967 Influenza Vaccine (#1) 2025 Hepatitis B Vaccine Aged Out No longe r eligible based on patient's age to complete this topic Insurance [facility] [place] [id number]
--- OUTSIDE RECORDS SUMMARY | 2025-02-25 14:49 | XMS_ITS | Patient Health Record ---
Author Organization [facility] [place] Address [address] [facility] [address] [place] [address] Care Team Providers Care Composition Stone Applicator Name Role Phone Dat Camargo Unavailable [phone] Autumn Harper Unavailable [phone] Reason For Referral No Information Encounters Encounter Location Date Provider Diagnosis [facility], [address] [address] 08/14/2024 Dat Camargo [facility], [address] [address] 09/03/2024 Dat Camargo [facility], [address] [address] 11/13/2024 Autumn Harper Plan Of Treatment No Information Insurance Providers Payer Name Payer Address Payer Phone Subscriber Number Group Number Insured Name Patient Relationship to Insured Coverage Start Date Coverage End Date [employer] Preferred [address] [place] [address] [id number] SIMON SÁNCHEZ Self - patient is the insured
== END 2025-02-24 11:35 | disposition home or self-care (01) ==
LOC: HO.HOSX 11:34
PROVIDERS: Visit Provider Orthopaedic Surgery
DX: S52.611A Displaced fracture of right ulna styloid process, initial encounter for closed fracture (principal); S52.501A Unspecified fracture of the lower end of right radius, initial encounter for closed fracture; X58.XXXA Exposure to other specified factors, initial encounter
CPT/HCPCS: 73110; 99212